=== PATIENT | female | born 1995 ===

== ENCOUNTER 2017-05-20 21:19 | Inpatient (IN) | payer BC, MEDICAID ==
[2017-05-20 21:20] VITALS: BMI 41.5
[2017-05-20] MEDS ORDERED: Sodium Chloride 0.9% 1,000 ML IV STA ×2 (21:30→22:08)
[2017-05-20 22:08] LABS: SALICYLATE < 1 mg/dL (2.0-20.0)
[2017-05-20 22:10] LABS: ALB/GLOB RATIO 1.2 (1.1-1.8); ALBUMIN 4.5 g/dL (3.0-4.8); ALT/SGPT 28 U/L (7-56); AST/SGOT 25 U/L (14-36); BLOOD UREA NITROGEN 15 mg/dL (7-21); CALCIUM 10.2 mg/dL (8.4-10.5); GFR AFRICAN-AMERICAN > 60; GFR NON-AFRICAN AMERICAN > 60
[2017-05-20 22:28] LABS: BASO # 0.01 K/mm3 (0.0-2.0); BASO % 0.2 % (0.0-3.0); EOS % 0.7 % (1.5-5.0); GRAN # 3.73 (1.4-6.5); GRAN % 62.6 % (50.0-68.0); HEMOGLOBIN 12.9 g/dL (12.0-16.0); LYMPH # 1.6 (1.2-3.4); LYMPH % 26.4 % (22.0-35.0); MEAN CELL VOLUME 85.2 fl (80.0-105.0); MEAN CORPUSCULAR HEMOGLOBIN 27.2 pg (25.0-35.0); MEAN CORPUSCULAR HGB CONC 31.9 g/dl (31.0-37.0); MEAN PLATELET VOLUME 10.8 fl (7.0-11.0); MONO # 0.6 (0.1-0.6); MONO % 10.1 % (1.0-6.0); RBC 4.74 10^6/uL (3.5-6.1); RED CELL DISTRIBUTION WIDTH 13.4 % (11.5-14.5)
--- NOTE | 2017-05-20 22:55 | ED PDOC ---
Arrival/HPI - General Chief Complaint: Psychiatric Evaluation Time Seen by Provider: 05/20/17 21:30 Historian: Patient - History of Present Illness Narrative History of Present Illness (Text): 05/20/17 22:55 A 21 year old female was brought in by EMS to the emergency department for substance overdose. Patient was living with mother, jobless, and after getting into an argument with mother, she was kicked out of her house. Patient took a bottle of Aspirin, bottle of Motrin and three sleeping pills. Reports suicidal ideation but denies any other complaints at this time. Symptom Onset: Sudden Symptom Course: Unchanged Activities at Onset: Rest Context: Home Past Medical History - Provider Review Nursing Documentation Reviewed: Yes - Infectious Disease Hx of Infectious Diseases: None - Psychiatric Hx Substance Use: No - Anesthesia Hx Anesthesia: No Family/Social History - Physician Review Nursing Documentation Reviewed: Yes Family/Social History: No Known Family HX Smoking Status: Never Smoked Hx Alcohol Use: No Hx Substance Use: No Allergies/Home Meds Allergies/Adverse Reactions: Allergies No Known Allergies Allergy (Verified 05/21/17 05:02) Home Medications: Home Meds Medication Instructions Recorded Confirmed No Known Home Med 05/21/17 05/21/17 Review of Systems - Physician Review All systems were reviewed & negative as marked: Yes - Review of Systems Constitutional: absent: Fevers Psychiatric: Suicidal Ideation Physical Exam Vital Signs Reviewed: Yes Vital Signs Temp Pulse Resp BP Pulse Ox 05/21/17 01:26 98.4 F 87 18 114/72 100 05/20/17 23:10 89 18 108/48 L 98 05/20/17 21:52 98.4 F 99 H 18 134/84 100 Temperature: Afebrile Blood Pressure: Normal Pulse: Regular Respiratory Rate: Normal Appearance: Positive for: Well-Appearing, Non-Toxic, Comfortable Pain Distress: None Mental Status: Positive for: Alert and Oriented X 3 - Systems Exam Head: Present: Atraumatic, Normocephalic Pupils: Present: PERRL Extroacular Muscles: Present: EOMI Conjunctiva: Present: Normal Mouth: Present: Moist Mucous Membranes Neck: Present: Normal Range of Motion Respiratory/Chest: Present: Clear to Auscultation, Good Air Exchange. No: Respiratory Distress, Accessory Muscle Use Cardiovascular: Present: Regular Rate and Rhythm, Normal S1, S2. No: Murmurs Abdomen: Present: Normal Bowel Sounds. No: Tenderness, Distention, Peritoneal Signs Back: Present: Normal Inspection Upper Extremity: Present: Normal Inspection. No: Cyanosis, Edema Lower Extremity: Present: Normal Inspection. No: Edema Neurological: Present: GCS=15, CN II-XII Intact, Speech Normal Skin: Present: Warm, Dry, Normal Color. No: Rashes Psychiatric: Present: Alert, Oriented x 3, Normal Insight, Normal Concentration Medical Decision Making ED Course and Treatment: 05/20/17 22:54 Impression: A 21 year old female with suicidal ideation and overdose. Plan: -- EKG -- labs -- IV fluids, Actidose/Sorbitol -- Urinalysis -- Reassess and disposition Progress Notes: 05/20/17 23:28 EKG: Ordered, reviewed, and independently interpreted the EKG. Rate : 97 BPM Rhythm : NSR Interpretation : Normal intervals, normal axis Comparison : No previous EKG for comparison. 05/21/17 02:38 Reviewed patient's labs, urine shows UTI. Patient is medically cleared and can be admitted to psych. Patient was evaluated by PES, pending on psychiatrist assessment and disposition. 05/21/17 03:20 Patient will be admitted to psych under Dr. Pena's service. - Lab Interpretations Lab Results: 05/20/17 21:30 05/20/17 21:30 Lab Results 05/21/17 02:30: pCO2 33 L, pO2 126.0 H, HCO3 20.4 L, ABG pH 7.40, ABG Total CO2 21.4 L, ABG O2 Saturation 99.5 H, ABG Base Excess -3.6 L, ABG Potassium 3.5 L, Glucose 114 H, Lactate 1.1, FiO2 21.0, Sodium 142.0, Chloride 114.0 H, Arterial Blood Potassium 3.5 L 05/21/17 01:20: Salicylates 6, Acetaminophen 16.0 05/20/17 23:13: Urine Color Yellow, Urine Appearance Clear, Urine pH 6.5, Ur Specific [place] 1.010, Urine Protein Negative, Urine Glucose (UA) Negative, Urine Ketones Negative, Urine Blood Negative, Urine Nitrate Positive H, Urine Bilirubin Negative, Urine Urobilinogen 0.2, Ur Leukocyte Esterase Negative, Urine RBC 0 - 2, Urine WBC 1 - 3, Ur Epithelial Cells 0 - 2, Urine Bacteria Many 05/20/17 23:13: Urine Opiates Screen Negative, Urine Methadone Screen Negative, Ur Barbiturates Screen Negative, Ur Phencyclidine Scrn Negative, Ur Amphetamines Screen Negative, U Benzodiazepines Scrn Negative, U Oth Cocaine Metabols Negative, U Cannabinoids Screen Negative 05/20/17 21:30: Alcohol, Quantitative < 10 05/20/17 21:30: Salicylates < 1 L, Acetaminophen 12.0 05/20/17 21:30: Sodium 141, Potassium 4.3, Chloride 104, Carbon Dioxide 22, Anion Gap 18, BUN 15, Creatinine 0.5 L, Est GFR ( Amer) > 60, Est GFR ( Non-Af Amer) > 60, Random Glucose 96, Calcium 10.2, Total Bilirubin 0.5, AST 25 , ALT 28, Alkaline Phosphatase 91, Total Protein 8.1, Albumin 4.5, Globulin 3.6 , Albumin/Globulin Ratio 1.2 05/20/17 21:30: WBC 6.0, RBC 4.74, Hgb 12.9, Hct 40.4, MCV 85.2, MCH 27.2, MCHC 31.9, RDW 13.4, Plt Count 249, MPV 10.8, Gran % 62.6, Lymph % (Auto) 26.4, [place] % (Auto) 10.1 H, Eos % (Auto) 0.7 L, Baso % (Auto) 0.2, Gran # 3.73, Lymph # ( Auto) 1.6, [place] # (Auto) 0.6, Eos # (Auto) 0.0, Baso # (Auto) 0.01 I have reviewed the lab results: Yes - EKG Interpretation Interpreted by ED Physician: Yes Type: 12 lead EKG - Medication Orders Current Medication Orders: Acetaminophen (Tylenol 325mg Tab) 650 mg PO Q6H PRN PRN Reason: Pain, Mild (1-3) Al Hydrox/Mg Hydrox/Simethicone (Maalox Plus 30 Ml) 30 ml PO DAILY PRN PRN Reason: Upset Stomach Bupropion HCl (Wellbutrin) 75 mg PO BID GREGORY Last Admin: 05/21/17 16:51 Dose: 75 mg Sodium Chloride (Sodium Chloride 0.9%) 1,000 mls @ 30 mls/hr IV .Q24H STA Stop: 05/21/17 21:29 Last Admin: 05/20/17 23:45 Dose: 30 mls/hr eMAR Start Stop Document 05/20/17 23:45 SS (Rec: 05/21/17 03:31 SS [id number]) Intravenous Solution Start Date 05/21/17 Start Time 23:45 End Date 05/21/17 End time 03:31 Total Infusion Time -1214 Magnesium Hydroxide (Milk Of Magnesia) 30 ml PO DAILY PRN PRN Reason: Constipation Discontinued Medications Cephalexin Monohydrate (Keflex) 500 mg PO TID GREGORY PRN Reason: Protocol Last Admin: 05/21/17 13:57 Dose: 500 mg Charcoal/Sorbitol (Actidose/Sorbitol 50gm/240 Ml Susp) 50 gm PO STAT STA Stop: 05/20/17 22:09 Last Admin: 05/20/17 23:01 Dose: 50 gm Sodium Chloride (Sodium Chloride 0.9%) 1,000 mls @ 999 mls/hr IV .Q1H1M STA Stop: 05/20/17 23:08 Last Admin: 05/20/17 22:28 Dose: 999 mls/hr eMAR Start Stop Document 05/20/17 22:28 SS (Rec: 05/20/17 22:28 SS [id number]) Intravenous Solution Start Date 05/20/17 Start Time 22:28 End Date 05/20/17 End time 23:28 Total Infusion Time 60 Ceftriaxone Sodium (Rocephin 1 Gram Ivpb) 1 gm in 100 mls @ 200 mls/hr IVPB STAT STA PRN Reason: Protocol Stop: 05/21/17 00:27 Last Admin: 05/21/17 01:44 Dose: 200 mls/hr eMAR Start Stop Document 05/21/17 01:44 SS (Rec: 05/21/17 01:44 SS [id number]) Intravenous Solution Start Date 05/21/17 Start Time 01:44 End Date 05/21/17 End time 02:44 Total Infusion Time 60 - PA / [employer] / Resident Statement MD/ has reviewed & agrees with the documentation as recorded. - Scribe Statement The provider has reviewed the documentation as recorded by the Luisibe Dave Gordon Provider Scribe Attestation: All medical record entries made by the Scribe were at my direction and personally dictated by me. I have reviewed the chart and agree that the record accurately reflects my personal performance of the history, physical exam, medical decision making, and the department course for this patient. I have also personally directed, reviewed, and agree with the discharge instructions and disposition. Disposition/Present on Arrival - Present on Arrival Any Indicators Present on Arrival: No History of DVT/PE: No History of Uncontrolled Diabetes: No Urinary Catheter: No History of Decub. Ulcer: No History Surgical Site Infection Following: None - Disposition Have Diagnosis and Disposition been Completed?: Yes Diagnosis: Suicide attempt, Severe major depression, UTI (urinary tract infection) Disposition: HOSPITALIZED Disposition Time: 03:25 Patient Plan: Admission Patient Problems: Current Active Problems Problem Status Onset Severe major depression Acute Suicide attempt Acute UTI (urinary tract infection) Acute Condition: IMPROVED
[2017-05-20 23:39] LABS: PH,URINE 6.5 (4.7-8.0); URINE BILIRUBIN NEGATIVE (NEGATIVE); URINE BLOOD NEGATIVE (NEGATIVE); URINE GLUCOSE (UA) NEGATIVE (NEGATIVE); URINE LEUKOCYTE ESTERASE NEGATIVE Leu/uL (NEGATIVE); URINE NITRATE POSITIVE (NEGATIVE); URINE PROTEIN NEGATIVE mg/dL (<30 mg/dL); URINE UROBILINOGEN 0.2 E.U./dL (<1 E.U./dL)
[2017-05-20 23:44] LABS: URINE APPEARANCE CLEAR (CLEAR); URINE COLOR YELLOW (YELLOW)
[2017-05-20 23:50] LABS: BARBITURATES, UR NEGATIVE (NEGATIVE); BENZODIAZEPINES, UR NEGATIVE (NEGATIVE); OPIATES, UR NEGATIVE (NEGATIVE); PHENCYCLIDINE, UR NEGATIVE (NEGATIVE)
[2017-05-20] MEDS ORDERED: cefTRIAXone 1 gm 1 GM/100 ML BAG IVPB STA (23:58)
[2017-05-21 00:09] LABS: URINE EPITHELIAL CELLS 0 - 2 /hpf (0-5); URINE RBC 0 - 2 /hpf (0-2)
[2017-05-21 00:10] LABS: URINE BACTERIA MANY (NEG)
[2017-05-21 02:39] LABS: ARTERIAL BLOOD GAS HCO3 20.4 mmol/L (21-28); ARTERIAL BLOOD GAS O2 SAT 99.5 % (95-98); ARTERIAL BLOOD GAS PCO2 33 mm/Hg (35-45); ARTERIAL BLOOD GAS TCO2 21.4 mmol.L (22-28)
[2017-05-21] MEDS ORDERED: Magnesium Hydroxide Susp 30 ml UD PO PRN (04:58)
[2017-05-21] MEDS ORDERED: Alum-Mag Hydrox-Simethicone Susp (30 mL) PO PRN (04:58)
--- NOTE | 2017-05-21 05:38 | PCM.BM ---
<JaidenMateus - Last Filed: 05/21/17 05:35> Treatment Plan Problems - Problems identified on initial assessmt Hopelessness/Helplessness Date Initiated: 05/21/17 Time Initiated: 04:00 Assessment reference: NA Status: Active Priority: 1 Feelings of Worthlessness Date Initiated: 05/21/17 Time Initiated: 04:00 Assessment reference: NA Status: Active Priority: 2 Ineffective Coping Date Initiated: 05/21/17 Time Initiated: 04:00 Assessment reference: NA Status: Active Priority: 3 Medication Nonadherence Date Initiated: 05/21/17 Time Initiated: 04:00 Assessment reference: NA Status: Active Priority: 4 Self Care Deficit Date Initiated: 05/21/17 Time Initiated: 04:00 Assessment reference: NA Status: Active Priority: 5 Treatment assets and liabiliti Patient Assests: cooperative, cognitively intact, good interpersonal skills Patient Liabilities: financial problems, relationship conflicts - Milieu Protocol Maintain good personal hygiene: daily Encourage regular showers, every shift Remind patient to perform daily oral care, every shift Assist patient to perform ADL's Maintain personal safety: every shift Educate patient to report safety concerns to staff, every shift Monitor environment for contraband/sharps Medication safety: Monitor for expected outcome, potential side effects: every shift, Assess barriers to learning: every shift, Assess readiness for medication education: every shift Family Contact Family involvement: Family/SO is involved Family contact: Patient agrees to contact - Goals for Treatment Patient goals for treatment: Improve mood, self esteem, and motivation. Discharge/Continuing Care - Education Needs Education Needs: Family Medication, Family Diagnosis/Disease Process, Family Coping Skills, Family Anger Management skills, Family Placement options, Family Community resources, Family Activities of Daily Living, Family Health Practices/ Safety, Family Aftercare Safety Plan, Patient Medication, Patient Diagnosis/ Disease Process, Patient Coping Skills, Patient Anger Management skills, Patient Placement options, Patient Community resources, Patient Activities of Daily Living, Patient Pain, Patient Nutrition, Patient Uses of Medical Equipment , Patient Health Practices/Safety, Patient Personal Hygiene/Grooming, Patient Aftercare Safety Plan - Discharge Discharge Criteria: Tolerates medication w/o severe side effects, Free of Suicidal thoughts, Ability to care for self <Sofia Hall - Last Filed: 05/21/17 12:36> - Diagnosis (1) Severe major depression Status: Acute Interventions: 05/21/17 12:36 Psychoeducation Psychopharmacology/adjustment of medications as needed/ monitoring possible side effects Evaluate pt on daily basis Compliance with medications and follow up appointments Suicide and homicide risk assessment and prevention Relapse prevention Reduction of symptoms Improve functional status Family involvement As outpatient: cognitive behavioral therapy <Yareli Adames - Last Filed: 05/22/17 12:22>
[2017-05-21 05:41] VITALS: O2SAT 97
--- NOTE | 2017-05-21 07:58 | CP.PCM.CON ---
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 Pt states that she had an argument with her mother and was kicked out of the house. She then took a bottle of aspirin (unable to tell # of tablets), Motrin and 3 sleeping pills (nyquil or benadryl). She states that she wanted to hurt herself. Reports feeling down lately. Denies fever, chills, nausea, vomiting, headache, cp, sob, abdominal pain, cough, diarrhea/constipation, dysuria, hematuria, urinary frequency, leg swelling. Pt states that she usually urinated normally, going to the bathroom. However, she also has an bladder ostomy site in her abdomen, where she drains urine at night time. 12 point ROS obtained and negative, except as noted per HPI. PMH: caudal regression syndrome (congenital) PSH: denies All: NKA FH: denies SH: lives with mother, jobless. Denies etoh/tobacco/drug use. Review of Systems - Review of Systems All systems: reviewed and no additional remarkable complaints except Review of Systems: as per hpi Past Patient History - Infectious Disease Hx of Infectious Diseases: None - Past Social History Smoking Status: Never Smoked - CARDIAC Hx Cardiac Disorders: No - PULMONARY Hx Respiratory Disorders: No - NEUROLOGICAL Hx Neurological Disorder: No - HEENT Hx HEENT Problems: No - RENAL Hx Chronic Kidney Disease: No - ENDOCRINE/METABOLIC Hx Endocrine Disorders: No - HEMATOLOGICAL/ONCOLOGICAL Hx Blood Disorders: No - INTEGUMENTARY Hx Dermatological Problems: No - GASTROINTESTINAL Hx Gastrointestinal Disorders: No - GENITOURINARY/GYNECOLOGICAL Hx Genitourinary Disorders: Yes Hx Urinary Tract Infection: Yes - PSYCHIATRIC Hx Depression: Yes - SURGICAL HISTORY Hx Surgeries: Yes - ANESTHESIA Hx Anesthesia: Yes Meds Allergies/Adverse Reactions: Allergies Allergy/AdvReac Type Severity Reaction Status Date / Time No Known Allergies Allergy Verified 05/21/17 05:02 - Medications Medications: Current Medications Acetaminophen (Tylenol 325mg Tab) 650 mg PO Q6H PRN PRN Reason: Pain, Mild (1-3) Al Hydrox/Mg Hydrox/Simethicone (Maalox Plus 30 Ml) 30 ml PO DAILY PRN PRN Reason: Upset Stomach Cephalexin Monohydrate (Keflex) 500 mg PO TID GREGORY PRN Reason: Protocol Sodium Chloride (Sodium Chloride 0.9%) 1,000 mls @ 30 mls/hr IV .Q24H STA Stop: 05/21/17 21:29 Last Admin: 05/20/17 23:45 Dose: 30 mls/hr Magnesium Hydroxide (Milk Of Magnesia) 30 ml PO DAILY PRN PRN Reason: Constipation Physical Exam - Constitutional Appears: Non-toxic, No Acute Distress - Head Exam Head Exam: ATRAUMATIC, NORMOCEPHALIC - Eye Exam Eye Exam: EOMI, PERRL. absent: Conjunctival injection, Scleral icterus Pupil Exam: NORMAL ACCOMODATION, PERRL. absent: Fixed, Irregular - ENT Exam ENT Exam: Mucous Membranes Moist - Neck Exam Neck exam: Positive for: Full Rom - Respiratory Exam Respiratory Exam: Clear to Auscultation Bilateral, NORMAL BREATHING PATTERN. absent: Accessory Muscle Use, Rales, Rhonchi, Wheezes - Cardiovascular Exam Cardiovascular Exam: RRR, +S1, +S2. absent: Bradycardia, Tachycardia, Systolic Murmur - GI/Abdominal Exam GI & Abdominal Exam: Normal Bowel Sounds, Soft. absent: Bruit, Distended, Firm , Guarding, Mass, Rebound, Tenderness Additional comments: + ostomy site on right side abdomen, at the umbilical level. Site pink, nonerythematous, nonfluctuant. - Extremities Exam Extremities exam: Negative for: calf tenderness, pedal edema - Back Exam Back exam: absent: CVA tenderness (L), CVA tenderness (R) - Neurological Exam Neurological exam: Alert, Oriented x3 - Psychiatric Exam Psychiatric exam: Depressed - Skin Skin Exam: Dry, Normal Color, Warm Results - Vital Signs Recent Vital Signs: Last Vital Signs Temp 97.2 F L 05/21/17 03:45 Pulse 92 H 05/21/17 03:45 Resp 16 05/21/17 03:45 BP 124/84 05/21/17 03:45 Pulse Ox 97 05/21/17 03:45 - Labs Result Diagrams: 05/20/17 21:30 05/20/17 21:30 Assessment & Plan - Assessment and Plan (Free Text) Assessment: 21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 Pt hemodynamically stable, cbc, cmp unremarkable, UA positive for nitrate and many bacteria, 1-3 wbcs, 0-2 epithelial cells. However, pt denies any urinary symptoms. UDS negative, low salicylate, tylenol, alcohol levels. She is currently stable and can proceed towards getting appropriate psychiatric care. Thank you for your consult. Discussed with Dr Rome. - Date & Time Date: 05/21/17 Time: 13:41 <Anika Rome - Last Filed: 05/23/17 14:46> Meds - Medications Medications: Current Medications Acetaminophen (Tylenol 325mg Tab) 650 mg PO Q6H PRN PRN Reason: Pain, Mild (1-3) Last Admin: 05/22/17 20:30 Dose: 650 mg Al Hydrox/Mg Hydrox/Simethicone (Maalox Plus 30 Ml) 30 ml PO DAILY PRN PRN Reason: Upset Stomach Ascorbic Acid (Vitamin C 500 Mg Tab) 500 mg PO DAILY [facility] Last Admin: 05/23/17 08:48 Dose: 500 mg Benzocaine/Menthol (Cepacol Sore Throat) 1 adan MT Q2H PRN PRN Reason: Sore Throat Last Admin: 05/23/17 13:57 Dose: 1 adan Bupropion HCl (Wellbutrin) 75 mg PO BID [facility] Last Admin: 05/23/17 08:48 Dose: 75 mg Magnesium Hydroxide (Milk Of Magnesia) 30 ml PO DAILY PRN PRN Reason: Constipation Multivitamins (Thera Tab) 1 tab PO 0800 [facility] Last Admin: 05/23/17 08:48 Dose: 1 tab Results - Vital Signs Recent Vital Signs: Last Vital Signs Temp 97.8 F 05/23/17 06:51 Pulse 85 05/23/17 06:51 Resp 20 05/23/17 06:51 BP 100/51 L 05/23/17 06:51 Pulse Ox 97 05/21/17 03:45 - Labs Result Diagrams: 05/20/17 21:30 05/20/17 21:30 Attending/Attestation - Attestation I have personally seen and examined this patient.: Yes I have fully participated in the care of the patient.: Yes I have reviewed all pertinent clinical information: Yes Notes (Text): 05/23/17 14:46 Patient was seen and examined with medical intern. Agreed with assessment and plan. There is no active medical issue at this time, we will sign off.Please call us back if any question. Management plan was discussed in detail with patient. Education was provided.
[2017-05-21 08:22] LABS: GLUCOSE,FASTING 83 mg/dL (65-110); HDL CHOLESTEROL 60 mg/dL (29-60)
[2017-05-21 08:33] LABS: LDL CHOLESTEROL 74 mg/dL (0-129)
--- NOTE | 2017-05-21 10:30 | RAD ---
HISTORY: Inpatient Psychiatric Admission COMPARISON: No prior. FINDINGS: LUNGS: No active pulmonary disease. PLEURA: No significant pleural effusion identified, no pneumothorax apparent. CARDIOVASCULAR: Normal. OSSEOUS STRUCTURES: No significant abnormalities. VISUALIZED UPPER ABDOMEN: Normal. OTHER FINDINGS: None. IMPRESSION: No active disease.
--- NOTE | 2017-05-21 13:19 | PCM.PSYCH ---
Initial Psychiatric Evaluation - Initial Psychiatric Evaluation Type of Admission: Voluntary Legal Status: Capacity (Patient has capacity to sign consent for treatment) Chief Complaint (in patient's own words): "my mom told me she wants me out, I didn't think seriously about that, but when I woke up at the morning and saw all the boxes, I realize she is serious" Patient's Reaction to Hospitalization: pt was admitted to the psychiatric inpatient unit for evaluation of depressive symptoms, pt is s/p intentional overdose on meds at home. pt was medically cleared in ED, was transferred uneventfully. History of Present Illness and Precipitating Events: Shortly patient is 21 year old female, self reported history of depression, one suicidal attempt in the past in 2015 and one previous psychiatric admission in at the same year, patient lives with her mother, has multiple medical issues including spina bifida, patient is unable to walk, ambulates either with wheelchair or crutches, currently does not work or attending college. pt was brought by ambulance and her cousin s/p intentional overdose on medications (r/o suicidal attempt), pt was not able to contract for safety, needs further evaluation and stabilization. pt was seen and examined at the morning time with medical students and SW, pt presented to be tearful, depressed. Pt has acceptable personal hygiene, pt needs assistance with her ADLs due to her physical problems. pt said that she had an arguments with her mother, pt said that her mother is upset over the fact that pt staying home all day long, does not work or does not go to school. Pt said "she threatened me couple of times that she is going to kick me out, but I didn't take seriously those threats", pt said that her mother let pt know that she needs to move out within two weeks. "I woke up and it were a lot of boxes in my room, I knew she was serious this time", pt said she started to pack her belongings, the was thinking "where I am going, I have nobody, I felt very down and depressed", then pt went to the bathroom and "I took all of the pills in the bathroom, then I went to my room and took all sleeping pills" pt said "It was PM cough medicine", pt said that she was taking all pills with water "to make sure it will go down", pt said nobody was at home and she went back to her room and lay "I wanted to end it all", pt said that her intent was to kill herself. pt said she did not have a plan, but she was feeling very "depressed and down", pt said after that her cousin came back from work and saw all empty bottles and called 911. pt said that she was feeling depressed for the past two weeks, denied having thoughts of killing self prior to this incident. pt had one suicidal attempt at 2014 "I chocked myself and overdosed on pills". pt considered first suicidal attempt to be more serious than current one. pt denied thoughts of harming self at the moment of the interview, contracted for safety. pt said she was feeling depressed, hopeless and helpless, worthless guilty, patient denied hearing voices or seeing things, denied paranoid ideations, patient does not appear to be psychotic. Patient reported no history of abuse, no physical, no emotional, no sexual. Patient denied manic episodes in the past. Patient denied smoking, reported that she smokes marijuana "not that often every other day", patient denied using other drugs, reported drinking alcohol "not that often." Past psychiatric history: See above, pt currently not on meds and has no psychiatrist Medical history: Patient has spina bifida, ambulates with a wheelchair or crutches, patient reported that she torn her ankle ligament sometime in February and since that time she was not able to go to College (pt was going to [employer] "I wanted to be a dentist"). 05/20/17 21:30 05/20/17 21:30 Lab Results 05/21/17 08:00: TSH 3rd Generation 0.35 L 05/21/17 08:00: Fasting Glucose 83, Triglycerides 50, Cholesterol 167, LDL Cholesterol Direct 74, HDL Cholesterol 60 05/21/17 02:30: pCO2 33 L, pO2 126.0 H, HCO3 20.4 L, ABG pH 7.40, ABG Total CO2 21.4 L, ABG O2 Saturation 99.5 H, ABG Base Excess -3.6 L, ABG Potassium 3.5 L, Glucose 114 H, Lactate 1.1, FiO2 21.0, Sodium 142.0, Chloride 114.0 H, Arterial Blood Potassium 3.5 L 05/21/17 01:20: Salicylates 6, Acetaminophen 16.0 05/20/17 23:13: Urine Color Yellow, Urine Appearance Clear, Urine pH 6.5, Ur Specific [place] 1.010, Urine Protein Negative, Urine Glucose (UA) Negative, Urine Ketones Negative, Urine Blood Negative, Urine Nitrate Positive H, Urine Bilirubin Negative, Urine Urobilinogen 0.2, Ur Leukocyte Esterase Negative, Urine RBC 0 - 2, Urine WBC 1 - 3, Ur Epithelial Cells 0 - 2, Urine Bacteria Many 05/20/17 23:13: Urine Opiates Screen Negative, Urine Methadone Screen Negative, Ur Barbiturates Screen Negative, Ur Phencyclidine Scrn Negative, Ur Amphetamines Screen Negative, U Benzodiazepines Scrn Negative, U Oth Cocaine Metabols Negative, U Cannabinoids Screen Negative 05/20/17 21:30: Alcohol, Quantitative < 10 05/20/17 21:30: Salicylates < 1 L, Acetaminophen 12.0 05/20/17 21:30: Sodium 141, Potassium 4.3, Chloride 104, Carbon Dioxide 22, Anion Gap 18, BUN 15, Creatinine 0.5 L, Est GFR ( Amer) > 60, Est GFR ( Non-Af Amer) > 60, Random Glucose 96, Calcium 10.2, Total Bilirubin 0.5, AST 25 , ALT 28, Alkaline Phosphatase 91, Total Protein 8.1, Albumin 4.5, Globulin 3.6 , Albumin/Globulin Ratio 1.2 05/20/17 21:30: WBC 6.0, RBC 4.74, Hgb 12.9, Hct 40.4, MCV 85.2, MCH 27.2, MCHC 31.9, RDW 13.4, Plt Count 249, MPV 10.8, Gran % 62.6, Lymph % (Auto) 26.4, [place] % (Auto) 10.1 H, Eos % (Auto) 0.7 L, Baso % (Auto) 0.2, Gran # 3.73, Lymph # ( Auto) 1.6, [place] # (Auto) 0.6, Eos # (Auto) 0.0, Baso # (Auto) 0.01 Vital Signs Temp Pulse Resp BP Pulse Ox 05/21/17 03:45 97.2 F L 92 H 16 124/84 97 05/21/17 01:26 98.4 F 87 18 114/72 100 02/07/18 23:10 89 18 108/48 L 98 05/20/17 21:52 98.4 F 99 H 18 134/84 100 this instructional writer asked if pt wants her mother to be involved into her treatment, pt refused. Current Medications: Active Medications Generic Name Dose Route Start Last Admin Trade Name Freq PRN Reason Stop Dose Admin Acetaminophen 650 mg 05/21/17 04:58 Tylenol 325mg Tab PO Q6H PRN Pain, Mild (1-3) Al Hydrox/Mg Hydrox/Simethicone 30 ml 05/21/17 04:58 Maalox Plus 30 Ml PO DAILY PRN Upset Stomach Cephalexin Monohydrate 500 mg 05/21/17 08:00 05/21/17 08:53 Keflex PO 500 mg TID GREGORY Administration Protocol Sodium Chloride 1,000 mls @ 30 mls/hr 05/20/17 21:30 05/20/17 23:45 Sodium Chloride 0.9% IV 05/21/17 21:29 30 mls/hr .Q24H STA Administration Magnesium Hydroxide 30 ml 05/21/17 04:58 Milk Of Magnesia PO DAILY PRN Constipation Past Psychiatric History - Past Psychiatric History Previous Treatment History: Inpatient Prior Professional Help: see HPI Prior Psychiatric Treatment: see HPI At what hospital: see HPI Duration: see HPI Nature of Treatment: see HPI Explanation of prior treatment: see HPI History of Abuse: see HPI History of ETOH/Drug Use: see HPI History of Family Illness: denied Pertinent Medical Hx (Current Medical&Sleep Prob, Allergies): Allergies Allergy/AdvReac Type Severity Reaction Status Date / Time No Known Allergies Allergy Verified 05/21/17 05:02 No Known Home Med 05/21/17 Review of Systems - Review of Systems Systems not reviewed;Unavailable: Acuity of Condition - EENT Eyes: As Per HPI Ears: As Per HPI - Breasts Breasts: As Per HPI - Cardiovascular Cardiovascular: As Per HPI - Respiratory Respiratory: As Per HPI - Gastrointestinal Gastrointestinal: As Per HPI - Genitourinary Genitourinary: As Per HPI - Reproductive: Female Reproductive:Female: As Per HPI - Menstruation Menstruation: As Per HPI - Musculoskeletal Musculoskeletal: As Par HPI - Integumentary Integumentary: As Per HPI - Neurological Neurological: As Per HPI - Psychiatric Psychiatric: As Per HPI - Endocrine Endocrine: As Per HPI - Hematologic/Lymphatic Hematologic: As Per HPI Mental Status Examination - Personal Presentation Personal Presentation: Looks stated age - Affect Affect: Flat (and tearful, mood congruent) - Motor Activity Motor Activity: Calm - Reliability in Providing Information Reliability in Providing Information: Fair - Speech Speech: Organized - Mood Mood: Depressed ("I feel depressed") - Formal Thought Process Formal Thought Process: No Impairment - Obsessions/Compulsions Obsessions: None Compulsions: None - Cognitive Functions Orientation: Person Sensorium: Alert Attention/Concentration: Easily distracted Estimate of Intelligence: Average Judgement: Intact, as evidence by: Insight regarding need for hospitalization - Risk Risk: Self-mutilation, Diminished functioning - Strength & Assets Inventory Strength & Assets Inventory: Cooperative - Limitations Limitations: Other (major medical issues, conflict with motehr) DSM 5 DX - DSM 5 DSM 5 Diagnosis: MDD, severe, recurrent with no psychosis - Recommended/Plan of Treatment Treatment Recommendations and Plan of Treatment: Milieu/structure/supportive therapy Medical consult appreciated, see medical team note for more detailed info SW consultation for discharge plan and social issues Med management wellbutrin 75mg po bid for depression Family involvement, pt does not want her mother to be involved Follow up on labs Will monitor closely Pt was educated about risk/benefits and alternatives of medications, coping strategies (safety plan, suicide prevention), relapse prevention, importance of follow up with psychiatrist and therapist, stay away from drugs/alcohol/smoking Projected ELOS: 7days Prognosis: fair Discharge Plan and Discharge Criteria: Pt will be not depressed or manic, will be more hopeful, will be not psychotic or anxious, will be not having thoughts of harming self or others, will be tolerating medications well, will not have major side effects, will be able to function, will not pose threat to self or others. - Smoking Cessation Smoking Cessation Initiated: No
--- NOTE | 2017-05-21 18:12 | CARD ---
APPROVED REPORT EKG Measurement Heart [id number] <Conclusion> Normal sinus rhythm Normal ECG
--- NOTE | 2017-05-22 16:07 | CP.PCM.PCO ---
Physician Communication Note - Physician Communication Note Physician Communication Note: as per PT, pt could walk using her crutches twice a day under supervision
--- NOTE | 2017-05-22 16:07 | PCM.PYCHPN ---
Psychiatric Progress Note - Psychiatric Progress Note Patient seen today, length of contact: 30min Patient Chief Complaint: "my mom came yesterday, visit was not good, she told me I was attention seeking..., I don't want her to be involved...." Problems Identified/Issues Discussed: Suicide/ homicide prevention, past psychiatric h/o, current psychiatric symptoms , medical problems, risk/benefits and alternatives of medications, medications compliance, coping strategies, substance abuse h/o, relapse prevention, importance of follow up with psychiatrist and therapist, discharge plan. Medical Problems: spina bifida Diagnostic Results: 05/20/17 21:30 05/20/17 21:30 Lab Results 05/21/17 08:00: RPR Nonreactive 05/21/17 08:00: TSH 3rd Generation 0.35 L 05/21/17 08:00: Fasting Glucose 83, Triglycerides 50, Cholesterol 167, LDL Cholesterol Direct 74, HDL Cholesterol 60 05/21/17 02:30: pCO2 33 L, pO2 126.0 H, HCO3 20.4 L, ABG pH 7.40, ABG Total CO2 21.4 L, ABG O2 Saturation 99.5 H, ABG Base Excess -3.6 L, ABG Potassium 3.5 L, Glucose 114 H, Lactate 1.1, FiO2 21.0, Sodium 142.0, Chloride 114.0 H, Arterial Blood Potassium 3.5 L 05/21/17 01:20: Salicylates 6, Acetaminophen 16.0 05/20/17 23:13: Urine Color Yellow, Urine Appearance Clear, Urine pH 6.5, Ur Specific [place] 1.010, Urine Protein Negative, Urine Glucose (UA) Negative, Urine Ketones Negative, Urine Blood Negative, Urine Nitrate Positive H, Urine Bilirubin Negative, Urine Urobilinogen 0.2, Ur Leukocyte Esterase Negative, Urine RBC 0 - 2, Urine WBC 1 - 3, Ur Epithelial Cells 0 - 2, Urine Bacteria Many 05/20/17 23:13: Urine Opiates Screen Negative, Urine Methadone Screen Negative, Ur Barbiturates Screen Negative, Ur Phencyclidine Scrn Negative, Ur Amphetamines Screen Negative, U Benzodiazepines Scrn Negative, U Oth Cocaine Metabols Negative, U Cannabinoids Screen Negative 05/20/17 21:30: Alcohol, Quantitative < 10 05/20/17 21:30: Salicylates < 1 L, Acetaminophen 12.0 05/20/17 21:30: Sodium 141, Potassium 4.3, Chloride 104, Carbon Dioxide 22, Anion Gap 18, BUN 15, Creatinine 0.5 L, Est GFR ( Amer) > 60, Est GFR ( Non-Af Amer) > 60, Random Glucose 96, Calcium 10.2, Total Bilirubin 0.5, AST 25 , ALT 28, Alkaline Phosphatase 91, Total Protein 8.1, Albumin 4.5, Globulin 3.6 , Albumin/Globulin Ratio 1.2 05/20/17 21:30: WBC 6.0, RBC 4.74, Hgb 12.9, Hct 40.4, MCV 85.2, MCH 27.2, MCHC 31.9, RDW 13.4, Plt Count 249, MPV 10.8, Gran % 62.6, Lymph % (Auto) 26.4, [place] % (Auto) 10.1 H, Eos % (Auto) 0.7 L, Baso % (Auto) 0.2, Gran # 3.73, Lymph # ( Auto) 1.6, [place] # (Auto) 0.6, Eos # (Auto) 0.0, Baso # (Auto) 0.01 Vital Signs Temp Pulse Resp BP Pulse Ox 05/22/17 07:43 98.2 F 81 20 96/51 L 05/21/17 16:00 99 H 116/62 05/21/17 03:45 97.2 F L 92 H 16 124/84 97 05/21/17 01:26 98.4 F 87 18 114/72 100 05/20/17 23:10 89 18 108/48 L 98 05/20/17 21:52 98.4 F 99 H 18 134/84 100 DSM 5 Symptoms Update: Shortly patient is 21 year old female, self reported history of depression, one suicidal attempt in the past in 2015 and one previous psychiatric admission in [facility] at the same year, patient lives with her mother, has multiple medical issues including spina bifida, patient is unable to walk, ambulates either with wheelchair or crutches, currently does not work or attending college. pt was brought by ambulance and her cousin s/p intentional overdose on medications (r/o suicidal attempt), pt was not able to contract for safety, needs further evaluation and stabilization. pt was seen and examined at the morning time in her room. pt took a shower, c/o sore throat. pt said that her mother came and visit her last night, "it was not a good visit , she said that I had attention seeking act, she also said anytime when she wants me out I will act the same, ....I don't want her to be involved". pt was advised to think about a family meeting, pt declined that offer pt reported that she still feels depressed and hopeless. seems to be remorseful for her act. pt tolerates meds well, no side effects observed or reported, AIMS 0, no EPS. Impression: MDD Medication Change: Yes (wellbutrin started) Medical Record Reviewed: Yes Consults ordered or reviewed: medical and PT consult appreciated as PT eval pt could use her crutches under supervision twice a day. Mental Status Examination - Cognitive Function Orientation: Person Memory: Intact Attention: Poor Concentration: Poor Association: WNL Fund of Knowledge: WNL - Mood Mood: Depressed ("I feel depressed") - Affect Affect: Flat (and tearful, mood congruent) - Formal Thought Process Formal Thought Process: No Impairment - Suicidal Ideation Suicidal Ideation: No - Homicidal Ideation Homicidal Ideation: No Goal/Treatment Plan - Goal/Treatment Plan Need for Continued Stay: Remain at risks for inpatient hospitalization, Severe depression anxiety, Discharge may exacerbated symptoms, Severe functional impairment Progress Toward Problem(s) and Goals/Treatment Plan: Milieu/structure/supportive therapy Medical consult appreciated, see medical team note for more detailed info SW consultation for discharge plan and social issues Med management wellbutrin 75mg po bid for depression sonata as needed for insomnia as per PT, pt could walk using her crutches twice a day under supervision of staff. Family involvement, pt does not want her mother to be involved Follow up on labs Will monitor closely Pt was educated about risk/benefits and alternatives of medications, coping strategies (safety plan, suicide prevention), relapse prevention, importance of follow up with psychiatrist and therapist, stay away from drugs/alcohol/smoking Estimated Date of D/C: 05/27/17
[2017-05-22] MEDS: Benzocaine/Menthol (Cepacol) Lozenge MT PRN (20:30)
[2017-05-23] MEDS: Multivitamin Therapeutic Tab PO SCH (08:48)
--- NOTE | 2017-05-23 09:27 | PCM.PYCHPN ---
Psychiatric Progress Note - Psychiatric Progress Note Patient seen today, length of contact: 25 min Patient Chief Complaint: "feels okay". Problems Identified/Issues Discussed: I reviewed assessment and recent notes. Patient was interviewed at bedside. Patient is well-oriented to month, year, location and circumstances. Grooming and focus are acceptable. Patient reports that she "feels okay". Affect is constricted and a little disengaged but polite. She denies any side effects from her medications however reports that she did not sleep well last night even with Sonata 5 mg x1. Thought process is coherent and responses are relevant. She continues to have chronic back pain and denies any new discomfort or pain. Staff notes indicate that she has been in control on the unit. She has been attending and participating in groups. Appears to appreciate and enjoy the company of other patients. There were no behavioral issues overnight. Diagnostic Results: Major Depressive Disorder, Severe Medication Change: Yes (Sonata increased to 10 mg HS prn) Medical Record Reviewed: Yes Mental Status Examination - Cognitive Function Orientation: Person Memory: Intact Attention: Poor Concentration: Poor Association: WNL Fund of Knowledge: WNL - Mood Mood: Depressed ( "feels okay".) - Affect Affect: Constricted, Flat (and tearful, mood congruent) - Speech Speech: Appropriate - Formal Thought Process Formal Thought Process: No Impairment - Suicidal Ideation Suicidal Ideation: No - Homicidal Ideation Homicidal Ideation: No Goal/Treatment Plan - Goal/Treatment Plan Need for Continued Stay: Remain at risks for inpatient hospitalization, Severe depression anxiety, Discharge may exacerbated symptoms, Severe functional impairment Progress Toward Problem(s) and Goals/Treatment Plan: c/w current tx and plan Sonata increased to 10 mg HS prn: insomnia on 05/23/17 No new weekend labs thus far Vitals reviewed and noted below: Selected Entries 05/23/17 06:51 Temperature 97.8 F Pulse Rate 85 Respiratory 20 Rate Blood Pressure 100/51 L Estimated Date of D/C: 05/27/17
[2017-05-23] MEDS: Benzocaine/Menthol (Cepacol) Lozenge MT PRN (13:57)
[2017-05-24] MEDS: Multivitamin Therapeutic Tab PO SCH (08:55)
--- NOTE | 2017-05-24 17:17 | PCM.PYCHPN ---
Psychiatric Progress Note - Psychiatric Progress Note Patient seen today, length of contact: 25 min Patient Chief Complaint: "feels the same". Problems Identified/Issues Discussed: I reviewed recent notes and patient was interviewed at bedside. Patient is well- oriented to month, year, location and circumstances. Grooming is acceptable. Patient reports that she feels the same, her affect remains constricted and a little flat. Patient denies any side effects except for headache this morning. She slept better on the increased dose of sonata 10 mg last night. Thought process is coherent and responses are relevant. She continues to have chronic back pain and denies any other new discomfort or pain. Staff notes indicate that she has been in control on the unit. She has been attending and participating in groups. Appears to appreciate and enjoy the company of other patients but still appears depressed. There were no behavioral issues over the weekend. Diagnostic Results: Major Depressive Disorder, Severe Medication Change: Yes (Sonata increased to 10 mg HS prn) Medical Record Reviewed: Yes Mental Status Examination - Cognitive Function Orientation: Person Memory: Intact Attention: Poor Concentration: Poor Association: WNL Fund of Knowledge: WNL - Mood Mood: Depressed ( "feels okay".) - Affect Affect: Constricted, Flat (and tearful, mood congruent) - Speech Speech: Appropriate - Formal Thought Process Formal Thought Process: No Impairment - Suicidal Ideation Suicidal Ideation: No - Homicidal Ideation Homicidal Ideation: No Goal/Treatment Plan - Goal/Treatment Plan Need for Continued Stay: Remain at risks for inpatient hospitalization, Severe depression anxiety, Discharge may exacerbated symptoms, Severe functional impairment Progress Toward Problem(s) and Goals/Treatment Plan: c/w current tx and plan Sonata increased to 10 mg HS prn: insomnia on 05/23/17 No new weekend labs Vitals reviewed and noted below: Selected Entries 05/24/17 07:27 Temperature 97.8 F Pulse Rate 83 Respiratory 20 Rate Blood Pressure 99/56 L Estimated Date of D/C: 05/27/17
[2017-05-25] MEDS: Multivitamin Therapeutic Tab PO SCH (09:17)
--- NOTE | 2017-05-25 15:24 | PCM.PYCHPN ---
Psychiatric Progress Note - Psychiatric Progress Note Patient seen today, length of contact: 25 min Patient Chief Complaint: "I feel little better" Problems Identified/Issues Discussed: Suicide/ homicide prevention, past psychiatric h/o, current psychiatric symptoms , medical problems, risk/benefits and alternatives of medications, medications compliance, coping strategies, substance abuse h/o, relapse prevention, importance of follow up with psychiatrist and therapist, discharge plan. Medical Problems: spina bifida Diagnostic Results: 05/20/17 21:30 05/20/17 21:30 Lab Results 05/21/17 08:00: RPR Nonreactive 05/21/17 08:00: TSH 3rd Generation 0.35 L 05/21/17 08:00: Fasting Glucose 83, Triglycerides 50, Cholesterol 167, LDL Cholesterol Direct 74, HDL Cholesterol 60 05/21/17 02:30: pCO2 33 L, pO2 126.0 H, HCO3 20.4 L, ABG pH 7.40, ABG Total CO2 21.4 L, ABG O2 Saturation 99.5 H, ABG Base Excess -3.6 L, ABG Potassium 3.5 L, Glucose 114 H, Lactate 1.1, FiO2 21.0, Sodium 142.0, Chloride 114.0 H, Arterial Blood Potassium 3.5 L 05/21/17 01:20: Salicylates 6, Acetaminophen 16.0 05/20/17 23:13: Urine Color Yellow, Urine Appearance Clear, Urine pH 6.5, Ur Specific [place] 1.010, Urine Protein Negative, Urine Glucose (UA) Negative, Urine Ketones Negative, Urine Blood Negative, Urine Nitrate Positive H, Urine Bilirubin Negative, Urine Urobilinogen 0.2, Ur Leukocyte Esterase Negative, Urine RBC 0 - 2, Urine WBC 1 - 3, Ur Epithelial Cells 0 - 2, Urine Bacteria Many 05/20/17 23:13: Urine Opiates Screen Negative, Urine Methadone Screen Negative, Ur Barbiturates Screen Negative, Ur Phencyclidine Scrn Negative, Ur Amphetamines Screen Negative, U Benzodiazepines Scrn Negative, U Oth Cocaine Metabols Negative, U Cannabinoids Screen Negative 05/20/17 21:30: Alcohol, Quantitative < 10 05/20/17 21:30: Salicylates < 1 L, Acetaminophen 12.0 05/20/17 21:30: Sodium 141, Potassium 4.3, Chloride 104, Carbon Dioxide 22, Anion Gap 18, BUN 15, Creatinine 0.5 L, Est GFR ( Amer) > 60, Est GFR ( Non-Af Amer) > 60, Random Glucose 96, Calcium 10.2, Total Bilirubin 0.5, AST 25 , ALT 28, Alkaline Phosphatase 91, Total Protein 8.1, Albumin 4.5, Globulin 3.6 , Albumin/Globulin Ratio 1.2 05/20/17 21:30: WBC 6.0, RBC 4.74, Hgb 12.9, Hct 40.4, MCV 85.2, MCH 27.2, MCHC 31.9, RDW 13.4, Plt Count 249, MPV 10.8, Gran % 62.6, Lymph % (Auto) 26.4, [place] % (Auto) 10.1 H, Eos % (Auto) 0.7 L, Baso % (Auto) 0.2, Gran # 3.73, Lymph # ( Auto) 1.6, [place] # (Auto) 0.6, Eos # (Auto) 0.0, Baso # (Auto) 0.01 Vital Signs Temp Pulse Resp BP Pulse Ox 05/22/17 07:43 98.2 F 81 20 96/51 L 05/21/17 16:00 99 H 116/62 05/21/17 03:45 97.2 F L 92 H 16 124/84 97 05/21/17 01:26 98.4 F 87 18 114/72 100 05/20/17 23:10 89 18 108/48 L 98 05/20/17 21:52 98.4 F 99 H 18 134/84 100 Temp Pulse Resp BP Pulse Ox 98.1 F 90 20 114/66 97 05/25/17 07:30 05/25/17 07:30 05/25/17 07:30 05/25/17 07:30 05/21/17 03:45 DSM 5 Symptoms Update: Shortly patient is 21 year old female, self reported history of depression, one suicidal attempt in the past in 2014 and one previous psychiatric admission in [facility] at the same year, patient lives with her mother, has multiple medical issues including spina bifida, patient is unable to walk, ambulates either with wheelchair or crutches, currently does not work or attending college. pt was brought by ambulance and her cousin s/p intentional overdose on medications (r/o suicidal attempt), pt was not able to contract for safety, needs further evaluation and stabilization. pt was seen and examined next to the nursing station. pt presented with some improvement, pt's affect was more reactive, pt also was pleasant. pt said that her cold symptoms are much better, pt said that she has a headaches, thought that it is due to wellbutrin, pt asked to change her meds, this leader writer offered celexa, risk/benefits and alternatives discussed. pt said that her mother visited her over the weekend and "It was good visit, I guess", when was asked in what way, pt said "we talked at least" pt gave permission to have meeting with her mother, but said she does not want to participate in that meeting. pt said that she has some future oriented plans "I want to go back to college, this is what my mother wants", pt was advised to think what does she want and make decision what is right for her, again encouraged to participate in family meeting. pt tolerates meds well, no side effects observed or reported, AIMS 0, no EPS. Impression: MDD Medication Change: Yes (wellubtrin d/c, celexa started) Medical Record Reviewed: Yes Consults ordered or reviewed: medical and PT consult appreciated as PT eval pt could use her crutches under supervision twice a day. Mental Status Examination - Cognitive Function Orientation: Person Memory: Intact Attention: Poor (some improvement) Concentration: Poor (some improvement) Association: WNL Fund of Knowledge: WNL - Mood Mood: Depressed ( "feels okay".) - Affect Affect: Constricted, Flat (and tearful, mood congruent) - Speech Speech: Appropriate - Formal Thought Process Formal Thought Process: No Impairment - Suicidal Ideation Suicidal Ideation: No - Homicidal Ideation Homicidal Ideation: No Goal/Treatment Plan - Goal/Treatment Plan Need for Continued Stay: Remain at risks for inpatient hospitalization, Severe depression anxiety, Discharge may exacerbated symptoms, Severe functional impairment Progress Toward Problem(s) and Goals/Treatment Plan: Milieu/structure/supportive therapy Medical consult appreciated, see medical team note for more detailed info SW consultation for discharge plan and social issues Med management wellbutrin d/c due to headaches celexa 10mg po daily started for depression sonata as needed for insomnia as per PT, pt could walk using her crutches twice a day under supervision of staff. Family involvement, pt does not want her mother to be involved Follow up on labs Will monitor closely Pt was educated about risk/benefits and alternatives of medications, coping strategies (safety plan, suicide prevention), relapse prevention, importance of follow up with psychiatrist and therapist, stay away from drugs/alcohol/smoking Estimated Date of D/C: 05/27/17
[2017-05-26] MEDS: Multivitamin Therapeutic Tab PO SCH (09:24)
--- NOTE | 2017-05-26 14:28 | CP.PCM.PN ---
<Macy Patel - Last Filed: 05/26/17 14:25> Subjective - Date & Time of Evaluation Date of Evaluation: 05/26/17 Time of Evaluation: 14:25 - Subjective Subjective: Macy Patel, PGY1, Medicine Progress Note for Dr De Santiago: Pt seen and examined at bedside. Reports 2 episodes of nonbloody, nonbilious vomiting since this AM, after food. Reports heartburn and constipation for past few days (since she is in wheelchair now, was previously using crutches at home) . Pt had 1-2 small bowel movements yesterday after many days. She regularly has a bowel movement every day. Currently, she states that she feels good, is hungry and would like to eat. Denies abdominal pain, fever, chills, urinary symptoms, diarrhea. Denies any sick contacts/roommate. Objective - Vital Signs/Intake and Output Vital Signs (last 24 hours): Temp Pulse Resp BP Pulse Ox 98.2 F 82 20 82/50 L 97 05/26/17 07:11 05/26/17 07:11 05/26/17 07:11 05/26/17 07:11 05/21/17 03:45 - Medications Medications: Current Medications Acetaminophen (Tylenol 325mg Tab) 650 mg PO Q6H PRN PRN Reason: Pain, Mild (1-3) Last Admin: 05/25/17 12:15 Dose: 650 mg Al Hydrox/Mg Hydrox/Simethicone (Maalox Plus 30 Ml) 30 ml PO DAILY PRN PRN Reason: Upset Stomach Ascorbic Acid (Vitamin C 500 Mg Tab) 500 mg PO DAILY [facility] Last Admin: 05/26/17 09:24 Dose: 500 mg Benzocaine/Menthol (Cepacol Sore Throat) 1 adan MT Q2H PRN PRN Reason: Sore Throat Last Admin: 05/23/17 13:57 Dose: 1 adan Citalopram Hydrobromide (Celexa) 10 mg PO DAILY [facility] Last Admin: 05/26/17 09:23 Dose: 10 mg Magnesium Hydroxide (Milk Of Magnesia) 30 ml PO DAILY PRN PRN Reason: Constipation Multivitamins (Thera Tab) 1 tab PO 0800 [facility] Last Admin: 05/26/17 09:24 Dose: 1 tab Ondansetron HCl (Zofran Tab) 4 mg PO Q8H PRN PRN Reason: Nausea/Vomiting Last Admin: 05/26/17 13:26 Dose: 4 mg Zaleplon (Sonata) 5 mg PO HS PRN PRN Reason: Insomnia Last Admin: 05/25/17 00:41 Dose: 5 mg - Constitutional Appears: Non-toxic, No Acute Distress - Head Exam Head Exam: ATRAUMATIC, NORMOCEPHALIC - Eye Exam Eye Exam: EOMI, PERRL. absent: Conjunctival injection, Periorbital swelling, Periorbital tenderness, Scleral icterus Pupil Exam: NORMAL ACCOMODATION, PERRL. absent: Fixed, Irregular, Unequal - ENT Exam ENT Exam: Mucous Membranes Moist - Neck Exam Neck Exam: Full ROM - Respiratory Exam Respiratory Exam: Clear to Ausculation Bilateral, NORMAL BREATHING PATTERN - Cardiovascular Exam Cardiovascular Exam: RRR, +S1, +S2. absent: Murmur - GI/Abdominal Exam GI & Abdominal Exam: Soft, Normal Bowel Sounds. absent: Distended, Guarding, Tenderness, Mass, Organomegaly, Rebound - Extremities Exam Extremities Exam: Normal Inspection. 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 Pt receiving care under the psych christie , improving symptoms. Today, pt developed two episodes of nonbloody, nonbilious emesis: Vomitin/2 constipation (wheelchair-bound) vs GERD/gastritis vs viral gastroenteritis - CBC, CMP - Started on protonix bid, zofran - colace prn - Regular diet. Switch to liquid diet if further episodes. - Cont to monitor. SI/depression: - Management as per psych - Pt started on new medication yesterday, Zaleplon, which has a side effect of nausea. Consider switching med if persistent vomiting/nausea. Discussed with Dr De Santiago. <Artur De Santiago - Last Filed: 05/26/17 14:54> Objective - Vital Signs/Intake and Output Vital Signs (last 24 hours): Temp Pulse Resp BP Pulse Ox 98.2 F 82 20 82/50 L 97 05/26/17 07:11 05/26/17 07:11 05/26/17 07:11 05/26/17 07:11 05/21/17 03:45 - Medications Medications: Current Medications Acetaminophen (Tylenol 325mg Tab) 650 mg PO Q6H PRN PRN Reason: Pain, Mild (1-3) Last Admin: 05/25/17 12:15 Dose: 650 mg Al Hydrox/Mg Hydrox/Simethicone (Maalox Plus 30 Ml) 30 ml PO DAILY PRN PRN Reason: Upset Stomach Ascorbic Acid (Vitamin C 500 Mg Tab) 500 mg PO DAILY [facility] Last Admin: 05/26/17 09:24 Dose: 500 mg Benzocaine/Menthol (Cepacol Sore Throat) 1 adan MT Q2H PRN PRN Reason: Sore Throat Last Admin: 05/23/17 13:57 Dose: 1 adan Citalopram Hydrobromide (Celexa) 10 mg PO DAILY [facility] Last Admin: 05/26/17 09:23 Dose: 10 mg Docusate Sodium (Colace) 100 mg PO BID PRN PRN Reason: Constipation Magnesium Hydroxide (Milk Of Magnesia) 30 ml PO DAILY PRN PRN Reason: Constipation Multivitamins (Thera Tab) 1 tab PO 0800 [facility] Last Admin: 05/26/17 09:24 Dose: 1 tab Ondansetron HCl (Zofran Tab) 4 mg PO Q8H PRN PRN Reason: Nausea/Vomiting Last Admin: 05/26/17 13:26 Dose: 4 mg Pantoprazole Sodium (Protonix Ec Tab) 20 mg PO 0600,1600 [facility] Zaleplon (Sonata) 5 mg PO HS PRN PRN Reason: Insomnia Last Admin: 05/25/17 00:41 Dose: 5 mg Attending/Attestation - Attestation I have personally seen and examined this patient.: Yes I have fully participated in the care of the patient.: Yes I have reviewed all pertinent clinical information, including history, physical exam and plan: Yes Notes (Text): 05/26/17 14:50 21 year old female who is currently admitted under psychiatric unit. Medical follow up was requestd after 2 episodes of vomiting today. Episodes were self-limited. Abdominal exam is unremarkable. Agree with PPI with trial of zofran prn. Continue with diet as tolerated. Can add colace prn for constipation. Repeat labs are ordered. Artur De Santiago MD Hospitalist.
--- NOTE | 2017-05-26 16:01 | PCM.PYCHPN ---
Psychiatric Progress Note - Psychiatric Progress Note Patient seen today, length of contact: 30min Patient Chief Complaint: "I vomited twice, I just ate and felt nauseated..." Problems Identified/Issues Discussed: Suicide/ homicide prevention, past psychiatric h/o, current psychiatric symptoms , medical problems, risk/benefits and alternatives of medications, medications compliance, coping strategies, substance abuse h/o, relapse prevention, importance of follow up with psychiatrist and therapist, discharge plan. Medical Problems: spina bifida Diagnostic Results: 05/20/17 21:30 05/20/17 21:30 Lab Results 05/21/17 08:00: RPR Nonreactive 05/21/17 08:00: TSH 3rd Generation 0.35 L 05/21/17 08:00: Fasting Glucose 83, Triglycerides 50, Cholesterol 167, LDL Cholesterol Direct 74, HDL Cholesterol 60 05/21/17 02:30: pCO2 33 L, pO2 126.0 H, HCO3 20.4 L, ABG pH 7.40, ABG Total CO2 21.4 L, ABG O2 Saturation 99.5 H, ABG Base Excess -3.6 L, ABG Potassium 3.5 L, Glucose 114 H, Lactate 1.1, FiO2 21.0, Sodium 142.0, Chloride 114.0 H, Arterial Blood Potassium 3.5 L 05/21/17 01:20: Salicylates 6, Acetaminophen 16.0 05/20/17 23:13: Urine Color Yellow, Urine Appearance Clear, Urine pH 6.5, Ur Specific [place] 1.010, Urine Protein Negative, Urine Glucose (UA) Negative, Urine Ketones Negative, Urine Blood Negative, Urine Nitrate Positive H, Urine Bilirubin Negative, Urine Urobilinogen 0.2, Ur Leukocyte Esterase Negative, Urine RBC 0 - 2, Urine WBC 1 - 3, Ur Epithelial Cells 0 - 2, Urine Bacteria Many 05/20/17 23:13: Urine Opiates Screen Negative, Urine Methadone Screen Negative, Ur Barbiturates Screen Negative, Ur Phencyclidine Scrn Negative, Ur Amphetamines Screen Negative, U Benzodiazepines Scrn Negative, U Oth Cocaine Metabols Negative, U Cannabinoids Screen Negative 05/20/17 21:30: Alcohol, Quantitative < 10 05/20/17 21:30: Salicylates < 1 L, Acetaminophen 12.0 05/20/17 21:30: Sodium 141, Potassium 4.3, Chloride 104, Carbon Dioxide 22, Anion Gap 18, BUN 15, Creatinine 0.5 L, Est GFR ( Amer) > 60, Est GFR ( Non-Af Amer) > 60, Random Glucose 96, Calcium 10.2, Total Bilirubin 0.5, AST 25 , ALT 28, Alkaline Phosphatase 91, Total Protein 8.1, Albumin 4.5, Globulin 3.6 , Albumin/Globulin Ratio 1.2 05/20/17 21:30: WBC 6.0, RBC 4.74, Hgb 12.9, Hct 40.4, MCV 85.2, MCH 27.2, MCHC 31.9, RDW 13.4, Plt Count 249, MPV 10.8, Gran % 62.6, Lymph % (Auto) 26.4, [place] % (Auto) 10.1 H, Eos % (Auto) 0.7 L, Baso % (Auto) 0.2, Gran # 3.73, Lymph # ( Auto) 1.6, [place] # (Auto) 0.6, Eos # (Auto) 0.0, Baso # (Auto) 0.01 Vital Signs Temp Pulse Resp BP Pulse Ox 05/22/17 07:43 98.2 F 81 20 96/51 L 05/21/17 16:00 99 H 116/62 05/21/17 03:45 97.2 F L 92 H 16 124/84 97 05/21/17 01:26 98.4 F 87 18 114/72 100 05/20/17 23:10 89 18 108/48 L 98 05/20/17 21:52 98.4 F 99 H 18 134/84 100 Temp Pulse Resp BP Pulse Ox 98.1 F 90 20 114/66 97 05/25/17 07:30 05/25/17 07:30 05/25/17 07:30 05/25/17 07:30 05/21/17 03:45 Temp Pulse Resp BP Pulse Ox 98.2 F 82 20 82/50 L 97 05/26/17 07:11 05/26/17 07:11 05/26/17 07:11 05/26/17 07:11 05/21/17 03:45 DSM 5 Symptoms Update: Shortly patient is 21 year old female, self reported history of depression, one suicidal attempt in the past in 2014 and one previous psychiatric admission in [facility] at the same year, patient lives with her mother, has multiple medical issues including spina bifida, patient is unable to walk, ambulates either with wheelchair or crutches, currently does not work or attending college. pt was brought by ambulance and her cousin s/p intentional overdose on medications (r/o suicidal attempt), pt was not able to contract for safety, needs further evaluation and stabilization. pt was seen and examined in her room, pt said she had vomiting twice right after she ate. pt was evaluated by [facility] team PPI and zofran started, they will consider liquid diet if vomiting will be persisting, will f/u on labs.consult appreciated. vomiting could be related to celexa, but not sure, will monitor. pt does not feel it is related to it, will decrease to 5mg. as per report pt was tearful, not opened up about her feelings, secretive. pt allowed to have a meeting with pt's mother, but does not want to participate. pt said that she has some future oriented plans "I want to go back to college, this is what my mother wants", pt was advised to think what does she want and make decision what is right for her, again encouraged to participate in family meeting. pt tolerates meds well, no side effects observed or reported, AIMS 0, no EPS. Impression: MDD Medication Change: Yes (wellubtrin d/c, celexa started) Medical Record Reviewed: Yes Consults ordered or reviewed: medical and PT consult appreciated as PT eval pt could use her crutches under supervision twice a day. medical f/u appreciated for vomiting. Mental Status Examination - Cognitive Function Orientation: Person Memory: Intact Attention: Poor (some improvement) Concentration: Poor (some improvement) Association: WNL Fund of Knowledge: WNL - Mood Mood: Depressed ( "feels okay".) - Affect Affect: Constricted, Flat (and tearful, mood congruent) - Speech Speech: Appropriate - Formal Thought Process Formal Thought Process: No Impairment - Suicidal Ideation Suicidal Ideation: No - Homicidal Ideation Homicidal Ideation: No Goal/Treatment Plan - Goal/Treatment Plan Need for Continued Stay: Remain at risks for inpatient hospitalization, Severe depression anxiety, Discharge may exacerbated symptoms, Severe functional impairment Progress Toward Problem(s) and Goals/Treatment Plan: Milieu/structure/supportive therapy Medical consult appreciated, see medical team note for more detailed info SIM consultation for discharge plan and social issues Med management will decrease celexa 5mg po daily started for depression sonata as needed for insomnia, pt does not want to be on it as per PT, pt could walk using her crutches twice a day under supervision of staff. Family involvement, SIM will schedule either family meeting or conference call Follow up on labs Will monitor closely Pt was educated about risk/benefits and alternatives of medications, coping strategies (safety plan, suicide prevention), relapse prevention, importance of follow up with psychiatrist and therapist, stay away from drugs/alcohol/smoking Estimated Date of D/C: 05/29/17
[2017-05-26] MEDS: Pantoprazole 20 mg EC Tab PO SCH (16:14)
[2017-05-26 17:17] LABS: BASO # 0.01 K/mm3 (0.0-2.0); BASO % 0.2 % (0.0-3.0); EOS # 0.1 (0.0-0.7); EOS % 1.2 % (1.5-5.0); GRAN # 2.36 (1.4-6.5); GRAN % 45.4 % (50.0-68.0); HEMOGLOBIN 12.6 g/dL (12.0-16.0); LYMPH # 2.4 (1.2-3.4); LYMPH % 45.9 % (22.0-35.0); MEAN CELL VOLUME 87.1 fl (80.0-105.0); MEAN CORPUSCULAR HEMOGLOBIN 27.2 pg (25.0-35.0); MEAN CORPUSCULAR HGB CONC 31.2 g/dl (31.0-37.0); MEAN PLATELET VOLUME 10.5 fl (7.0-11.0); MONO # 0.4 (0.1-0.6); MONO % 7.3 % (1.0-6.0); RBC 4.64 10^6/uL (3.5-6.1); RED CELL DISTRIBUTION WIDTH 13.5 % (11.5-14.5); WHITE BLOOD COUNT 5.2 10^3/ul (4.5-11.0)
[2017-05-26 17:25] LABS: ALB/GLOB RATIO 1.3 (1.1-1.8); ALBUMIN 4.3 g/dL (3.0-4.8); ALT/SGPT 24 U/L (7-56); AST/SGOT 26 U/L (14-36); BLOOD UREA NITROGEN 14 mg/dL (7-21); CALCIUM 9.5 mg/dL (8.4-10.5); GFR AFRICAN-AMERICAN > 60; GFR NON-AFRICAN AMERICAN > 60
[2017-05-27] MEDS: Pantoprazole 20 mg EC Tab PO SCH ×2 (09:45→17:12)
[2017-05-27] MEDS: Multivitamin Therapeutic Tab PO SCH (09:45)
--- NOTE | 2017-05-27 16:08 | PCM.PYCHPN ---
Psychiatric Progress Note - Psychiatric Progress Note Patient seen today, length of contact: 30min Patient Chief Complaint: "I don't think I am ready to go" Problems Identified/Issues Discussed: Suicide/ homicide prevention, past psychiatric h/o, current psychiatric symptoms , medical problems, risk/benefits and alternatives of medications, medications compliance, coping strategies, substance abuse h/o, relapse prevention, importance of follow up with psychiatrist and therapist, discharge plan. Medical Problems: spina bifida Diagnostic Results: 05/20/17 21:30 05/20/17 21:30 Lab Results 05/21/17 08:00: RPR Nonreactive 05/21/17 08:00: TSH 3rd Generation 0.35 L 05/21/17 08:00: Fasting Glucose 83, Triglycerides 50, Cholesterol 167, LDL Cholesterol Direct 74, HDL Cholesterol 60 05/21/17 02:30: pCO2 33 L, pO2 126.0 H, HCO3 20.4 L, ABG pH 7.40, ABG Total CO2 21.4 L, ABG O2 Saturation 99.5 H, ABG Base Excess -3.6 L, ABG Potassium 3.5 L, Glucose 114 H, Lactate 1.1, FiO2 21.0, Sodium 142.0, Chloride 114.0 H, Arterial Blood Potassium 3.5 L 05/21/17 01:20: Salicylates 6, Acetaminophen 16.0 05/20/17 23:13: Urine Color Yellow, Urine Appearance Clear, Urine pH 6.5, Ur Specific [place] 1.010, Urine Protein Negative, Urine Glucose (UA) Negative, Urine Ketones Negative, Urine Blood Negative, Urine Nitrate Positive H, Urine Bilirubin Negative, Urine Urobilinogen 0.2, Ur Leukocyte Esterase Negative, Urine RBC 0 - 2, Urine WBC 1 - 3, Ur Epithelial Cells 0 - 2, Urine Bacteria Many 05/20/17 23:13: Urine Opiates Screen Negative, Urine Methadone Screen Negative, Ur Barbiturates Screen Negative, Ur Phencyclidine Scrn Negative, Ur Amphetamines Screen Negative, U Benzodiazepines Scrn Negative, U Oth Cocaine Metabols Negative, U Cannabinoids Screen Negative 05/20/17 21:30: Alcohol, Quantitative < 10 05/20/17 21:30: Salicylates < 1 L, Acetaminophen 12.0 05/20/17 21:30: Sodium 141, Potassium 4.3, Chloride 104, Carbon Dioxide 22, Anion Gap 18, BUN 15, Creatinine 0.5 L, Est GFR ( Amer) > 60, Est GFR ( Non-Af Amer) > 60, Random Glucose 96, Calcium 10.2, Total Bilirubin 0.5, AST 25 , ALT 28, Alkaline Phosphatase 91, Total Protein 8.1, Albumin 4.5, Globulin 3.6 , Albumin/Globulin Ratio 1.2 05/20/17 21:30: WBC 6.0, RBC 4.74, Hgb 12.9, Hct 40.4, MCV 85.2, MCH 27.2, MCHC 31.9, RDW 13.4, Plt Count 249, MPV 10.8, Gran % 62.6, Lymph % (Auto) 26.4, [place] % (Auto) 10.1 H, Eos % (Auto) 0.7 L, Baso % (Auto) 0.2, Gran # 3.73, Lymph # ( Auto) 1.6, [place] # (Auto) 0.6, Eos # (Auto) 0.0, Baso # (Auto) 0.01 Vital Signs Temp Pulse Resp BP Pulse Ox 05/22/17 07:43 98.2 F 81 20 96/51 L 05/21/17 16:00 99 H 116/62 05/21/17 03:45 97.2 F L 92 H 16 124/84 97 05/21/17 01:26 98.4 F 87 18 114/72 100 05/20/17 23:10 89 18 108/48 L 98 05/20/17 21:52 98.4 F 99 H 18 134/84 100 Temp Pulse Resp BP Pulse Ox 98.1 F 90 20 114/66 97 05/25/17 07:30 05/25/17 07:30 05/25/17 07:30 05/25/17 07:30 05/21/17 03:45 Temp Pulse Resp BP Pulse Ox 98.2 F 82 20 82/50 L 97 05/26/17 07:11 05/26/17 07:11 05/26/17 07:11 05/26/17 07:11 05/21/17 03:45 DSM 5 Symptoms Update: Shortly patient is 21 year old female, self reported history of depression, one suicidal attempt in the past in 2014 and one previous psychiatric admission in [facility] at the same year, patient lives with her mother, has multiple medical issues including spina bifida, patient is unable to walk, ambulates either with wheelchair or crutches, currently does not work or attending college. pt was brought by ambulance and her cousin s/p intentional overdose on medications (r/o suicidal attempt), pt was not able to contract for safety, needs further evaluation and stabilization. pt was seen and examined in her room, pt said she did not have any vomiting episodes, labs WNL. celexa was increased again family meeting scheduled for tomorrow. pt said she feels depressed and hopeless and "I don't feel ready to be discharged" as per report pt was tearful, not opened up about her feelings, secretive. pt allowed to have a meeting with pt's mother, but does not want to participate. pt said that she has some future oriented plans "I want to go back to college, this is what my mother wants", pt was advised to think what does she want and make decision what is right for her, again encouraged to participate in family meeting tomorrow. pt tolerates meds well, no side effects observed or reported, AIMS 0, no EPS. Impression: MDD Medication Change: Yes (wellubtrin d/c, celexa started) Medical Record Reviewed: Yes Mental Status Examination - Cognitive Function Orientation: Person Memory: Intact Attention: Poor (some improvement) Concentration: Poor (some improvement) Association: WNL Fund of Knowledge: WNL - Mood Mood: Depressed ( "feels okay".) - Affect Affect: Constricted, Flat (and tearful, mood congruent) - Speech Speech: Appropriate - Formal Thought Process Formal Thought Process: No Impairment - Suicidal Ideation Suicidal Ideation: No - Homicidal Ideation Homicidal Ideation: No Goal/Treatment Plan - Goal/Treatment Plan Need for Continued Stay: Remain at risks for inpatient hospitalization, Severe depression anxiety, Discharge may exacerbated symptoms, Severe functional impairment Progress Toward Problem(s) and Goals/Treatment Plan: Milieu/structure/supportive therapy Medical consult appreciated, see medical team note for more detailed info SW consultation for discharge plan and social issues Med management celexa 10mg po daily started for depression sonata as needed for insomnia, pt does not want to be on it as per PT, pt could walk using her crutches twice a day under supervision of staff. Family meeting tomorrow Follow up on labs Will monitor closely Pt was educated about risk/benefits and alternatives of medications, coping strategies (safety plan, suicide prevention), relapse prevention, importance of follow up with psychiatrist and therapist, stay away from drugs/alcohol/smoking Estimated Date of D/C: 06/01/17
[2017-05-28] MEDS: Multivitamin Therapeutic Tab PO SCH (09:06)
[2017-05-28] MEDS: Pantoprazole 20 mg EC Tab PO SCH ×2 (09:06→17:22)
--- NOTE | 2017-05-28 16:02 | PCM.PYCHPN ---
Psychiatric Progress Note - Psychiatric Progress Note Patient seen today, length of contact: 30min Patient Chief Complaint: "I did not sleep last night" Problems Identified/Issues Discussed: Suicide/ homicide prevention, past psychiatric h/o, current psychiatric symptoms , medical problems, risk/benefits and alternatives of medications, medications compliance, coping strategies, substance abuse h/o, relapse prevention, importance of follow up with psychiatrist and therapist, discharge plan. Medical Problems: spina bifida Diagnostic Results: 05/20/17 21:30 05/20/17 21:30 Lab Results 05/21/17 08:00: RPR Nonreactive 05/21/17 08:00: TSH 3rd Generation 0.35 L 05/21/17 08:00: Fasting Glucose 83, Triglycerides 50, Cholesterol 167, LDL Cholesterol Direct 74, HDL Cholesterol 60 05/21/17 02:30: pCO2 33 L, pO2 126.0 H, HCO3 20.4 L, ABG pH 7.40, ABG Total CO2 21.4 L, ABG O2 Saturation 99.5 H, ABG Base Excess -3.6 L, ABG Potassium 3.5 L, Glucose 114 H, Lactate 1.1, FiO2 21.0, Sodium 142.0, Chloride 114.0 H, Arterial Blood Potassium 3.5 L 05/21/17 01:20: Salicylates 6, Acetaminophen 16.0 05/20/17 23:13: Urine Color Yellow, Urine Appearance Clear, Urine pH 6.5, Ur Specific [place] 1.010, Urine Protein Negative, Urine Glucose (UA) Negative, Urine Ketones Negative, Urine Blood Negative, Urine Nitrate Positive H, Urine Bilirubin Negative, Urine Urobilinogen 0.2, Ur Leukocyte Esterase Negative, Urine RBC 0 - 2, Urine WBC 1 - 3, Ur Epithelial Cells 0 - 2, Urine Bacteria Many 05/20/17 23:13: Urine Opiates Screen Negative, Urine Methadone Screen Negative, Ur Barbiturates Screen Negative, Ur Phencyclidine Scrn Negative, Ur Amphetamines Screen Negative, U Benzodiazepines Scrn Negative, U Oth Cocaine Metabols Negative, U Cannabinoids Screen Negative 05/20/17 21:30: Alcohol, Quantitative < 10 05/20/17 21:30: Salicylates < 1 L, Acetaminophen 12.0 05/20/17 21:30: Sodium 141, Potassium 4.3, Chloride 104, Carbon Dioxide 22, Anion Gap 18, BUN 15, Creatinine 0.5 L, Est GFR ( Amer) > 60, Est GFR ( Non-Af Amer) > 60, Random Glucose 96, Calcium 10.2, Total Bilirubin 0.5, AST 25 , ALT 28, Alkaline Phosphatase 91, Total Protein 8.1, Albumin 4.5, Globulin 3.6 , Albumin/Globulin Ratio 1.2 05/20/17 21:30: WBC 6.0, RBC 4.74, Hgb 12.9, Hct 40.4, MCV 85.2, MCH 27.2, MCHC 31.9, RDW 13.4, Plt Count 249, MPV 10.8, Gran % 62.6, Lymph % (Auto) 26.4, [place] % (Auto) 10.1 H, Eos % (Auto) 0.7 L, Baso % (Auto) 0.2, Gran # 3.73, Lymph # ( Auto) 1.6, [place] # (Auto) 0.6, Eos # (Auto) 0.0, Baso # (Auto) 0.01 Vital Signs Temp Pulse Resp BP Pulse Ox 05/22/17 07:43 98.2 F 81 20 96/51 L 05/21/17 16:00 99 H 116/62 05/21/17 03:45 97.2 F L 92 H 16 124/84 97 05/21/17 01:26 98.4 F 87 18 114/72 100 05/20/17 23:10 89 18 108/48 L 98 05/20/17 21:52 98.4 F 99 H 18 134/84 100 Temp Pulse Resp BP Pulse Ox 98.1 F 90 20 114/66 97 05/25/17 07:30 05/25/17 07:30 05/25/17 07:30 05/25/17 07:30 05/21/17 03:45 Temp Pulse Resp BP Pulse Ox 98.2 F 82 20 82/50 L 97 05/26/17 07:11 05/26/17 07:11 05/26/17 07:11 05/26/17 07:11 05/21/17 03:45 DSM 5 Symptoms Update: Shortly patient is 21 year old female, self reported history of depression, one suicidal attempt in the past in 2014 and one previous psychiatric admission in [facility] at the same year, patient lives with her mother, has multiple medical issues including spina bifida, patient is unable to walk, ambulates either with wheelchair or crutches, currently does not work or attending college. pt was brought by ambulance and her cousin s/p intentional overdose on medications (r/o suicidal attempt), pt was not able to contract for safety, needs further evaluation and stabilization. pt was seen and examined in her room, pt is sad and depressed, staid in her room up until 2pm, refused breakfast, pt said she did not sleep last night, offered meds, but pt refused. pt still has feeling of hopelessness and helplessness. family meeting took place today, pt's mother, SW and this conventional mortgage underwriter discussed d/c plan and med management IOP program Vocational program mother was appreciative, said she is willing to accept pt back if "she will try her best to be productive in her life", pt's mother said she did not want to kick pt out but pt was sleeping all day long, staying late on the computer, was refusing to go to school "it is unacceptable, I know she has physical limitations, but it is not the reason to stay home and feel sorry for herself". pt refused to participate in meeting. pt said that she has some future oriented plans "I want to go back to college, this is what my mother wants", pt was advised to think what does she want and make decision what is right for her, again encouraged to participate in family meeting tomorrow. pt tolerates meds well, no side effects observed or reported, AIMS 0, no EPS. Impression: MDD Medication Change: Yes (celexa increased) Medical Record Reviewed: Yes Consults ordered or reviewed: medical and PT consult appreciated as PT eval pt could use her crutches under supervision twice a day. medical f/u appreciated for vomiting. Mental Status Examination - Cognitive Function Orientation: Person Memory: Intact Attention: Poor (some improvement) Concentration: Poor (some improvement) Association: WNL Fund of Knowledge: WNL - Mood Mood: Depressed ( "feels okay".) - Affect Affect: Constricted, Flat (and tearful, mood congruent) - Speech Speech: Appropriate - Formal Thought Process Formal Thought Process: No Impairment - Suicidal Ideation Suicidal Ideation: No - Homicidal Ideation Homicidal Ideation: No Goal/Treatment Plan - Goal/Treatment Plan Need for Continued Stay: Remain at risks for inpatient hospitalization, Severe depression anxiety, Discharge may exacerbated symptoms, Severe functional impairment Progress Toward Problem(s) and Goals/Treatment Plan: Milieu/structure/supportive therapy Medical consult appreciated, see medical team note for more detailed info SW consultation for discharge plan and social issues Med management celexa will be increased to 15mg po daily tomorrow for depression sonata as needed for insomnia, pt does not want to be on it as per PT, pt could walk using her crutches twice a day under supervision of staff. Family meeting tomorrow Follow up on labs Will monitor closely Pt was educated about risk/benefits and alternatives of medications, coping strategies (safety plan, suicide prevention), relapse prevention, importance of follow up with psychiatrist and therapist, stay away from drugs/alcohol/smoking Estimated Date of D/C: 06/01/17
[2017-05-29] MEDS: Pantoprazole 20 mg EC Tab PO SCH ×2 (08:38→16:55)
[2017-05-29] MEDS: Multivitamin Therapeutic Tab PO SCH (08:38)
--- NOTE | 2017-05-29 12:24 | PCM.BM ---
<Abel Acosta - Last Filed: 05/29/17 12:26> Treatment Plan Problems - Problems identified on initial assessmt Hopelessness/Helplessness Date Initiated: 05/21/17 Time Initiated: 04:00 Assessment reference: NA Status: Active Priority: 1 Feelings of Worthlessness Date Initiated: 05/21/17 Time Initiated: 04:00 Assessment reference: NA Status: Active Priority: 2 Ineffective Coping Date Initiated: 05/21/17 Time Initiated: 04:00 Assessment reference: NA Status: Active Priority: 3 Medication Nonadherence Date Initiated: 05/21/17 Time Initiated: 04:00 Assessment reference: NA Status: Active Priority: 4 Self Care Deficit Date Initiated: 05/21/17 Time Initiated: 04:00 Assessment reference: NA Status: Active Priority: 5 Treatment assets and liabiliti Patient Assests: cooperative, cognitively intact, good interpersonal skills Patient Liabilities: financial problems, relationship conflicts - Milieu Protocol Maintain good personal hygiene: daily Encourage regular showers, every shift Remind patient to perform daily oral care, every shift Assist patient to perform ADL's Maintain personal safety: every shift Educate patient to report safety concerns to staff, every shift Monitor environment for contraband/sharps Medication safety: Monitor for expected outcome, potential side effects: every shift, Assess barriers to learning: every shift, Assess readiness for medication education: every shift Milieu Narrative: Milieu/structure/supportive therapy Medical consult appreciated, see medical team note for more detailed info SW consultation for discharge plan and social issues Med management celexa will be increased to 15mg po daily tomorrow for depression sonata as needed for insomnia, pt does not want to be on it as per PT, pt could walk using her crutches twice a day under supervision of staff. Family meeting tomorrow Follow up on labs Will monitor closely Pt was educated about risk/benefits and alternatives of medications, coping strategies (safety plan, suicide prevention), relapse prevention, importance of follow up with psychiatrist and therapist, stay away from drugs/alcohol/smoking Family Contact Family involvement: No known Family/SO - Goals for Treatment Patient goals for treatment: Improve mood, self esteem, and motivation. Discharge/Continuing Care - Education Needs Education Needs: Family Medication, Family Diagnosis/Disease Process, Family Coping Skills, Family Anger Management skills, Family Placement options, Family Community resources, Family Activities of Daily Living, Family Health Practices/ Safety, Family Aftercare Safety Plan, Patient Medication, Patient Diagnosis/ Disease Process, Patient Coping Skills, Patient Anger Management skills, Patient Placement options, Patient Community resources, Patient Activities of Daily Living, Patient Pain, Patient Nutrition, Patient Uses of Medical Equipment , Patient Health Practices/Safety, Patient Personal Hygiene/Grooming, Patient Aftercare Safety Plan, Patient Other (VOCATIONAL ASSISTANCE) - Discharge Discharge Criteria: Tolerates medication w/o severe side effects, Free of Suicidal thoughts, Ability to care for self - Treatment Team Participation Patient/Family/SO Statement: Milieu/structure/supportive therapy Medical consult appreciated, see medical team note for more detailed info SW consultation for discharge plan and social issues Med management celexa will be increased to 15mg po daily tomorrow for depression sonata as needed for insomnia, pt does not want to be on it as per PT, pt could walk using her crutches twice a day under supervision of staff. Family meeting tomorrow Follow up on labs Will monitor closely Pt was educated about risk/benefits and alternatives of medications, coping strategies (safety plan, suicide prevention), relapse prevention, importance of follow up with psychiatrist and therapist, stay away from drugs/alcohol/smoking Treatment Plan Review - Problem Hopelessness/Helplessness Time Initiated: 04:00 Feelings of Worthlessness Time Initiated: 04:00 Ineffective Coping Time Initiated: 04:00 Medication Nonadherence Time Initiated: 04:00 Self Care Deficit Time Initiated: 04:00 <Sofia Hall - Last Filed: 05/29/17 17:07> - Diagnosis (1) Severe major depression Status: Acute Interventions: 05/29/17 17:06 depressive symptoms still present, but pt is more hopeful denied thoughts of harming self or others
--- NOTE | 2017-05-29 17:17 | PCM.PYCHPN ---
Psychiatric Progress Note - Psychiatric Progress Note Patient seen today, length of contact: 30min Patient Chief Complaint: "I do not know what I could do if suicidal thoughts will be back..." Problems Identified/Issues Discussed: Suicide/ homicide prevention, past psychiatric h/o, current psychiatric symptoms , medical problems, risk/benefits and alternatives of medications, medications compliance, coping strategies, substance abuse h/o, relapse prevention, importance of follow up with psychiatrist and therapist, discharge plan. Medical Problems: spina bifida pt ambulates with crutches or at wheelchair. Diagnostic Results: 05/20/17 21:30 05/20/17 21:30 Lab Results 05/21/17 08:00: RPR Nonreactive 05/21/17 08:00: TSH 3rd Generation 0.35 L 05/21/17 08:00: Fasting Glucose 83, Triglycerides 50, Cholesterol 167, LDL Cholesterol Direct 74, HDL Cholesterol 60 05/21/17 02:30: pCO2 33 L, pO2 126.0 H, HCO3 20.4 L, ABG pH 7.40, ABG Total CO2 21.4 L, ABG O2 Saturation 99.5 H, ABG Base Excess -3.6 L, ABG Potassium 3.5 L, Glucose 114 H, Lactate 1.1, FiO2 21.0, Sodium 142.0, Chloride 114.0 H, Arterial Blood Potassium 3.5 L 05/21/17 01:20: Salicylates 6, Acetaminophen 16.0 05/20/17 23:13: Urine Color Yellow, Urine Appearance Clear, Urine pH 6.5, Ur Specific [place] 1.010, Urine Protein Negative, Urine Glucose (UA) Negative, Urine Ketones Negative, Urine Blood Negative, Urine Nitrate Positive H, Urine Bilirubin Negative, Urine Urobilinogen 0.2, Ur Leukocyte Esterase Negative, Urine RBC 0 - 2, Urine WBC 1 - 3, Ur Epithelial Cells 0 - 2, Urine Bacteria Many 05/20/17 23:13: Urine Opiates Screen Negative, Urine Methadone Screen Negative, Ur Barbiturates Screen Negative, Ur Phencyclidine Scrn Negative, Ur Amphetamines Screen Negative, U Benzodiazepines Scrn Negative, U Oth Cocaine Metabols Negative, U Cannabinoids Screen Negative 05/20/17 21:30: Alcohol, Quantitative < 10 05/20/17 21:30: Salicylates < 1 L, Acetaminophen 12.0 05/20/17 21:30: Sodium 141, Potassium 4.3, Chloride 104, Carbon Dioxide 22, Anion Gap 18, BUN 15, Creatinine 0.5 L, Est GFR ( Amer) > 60, Est GFR ( Non-Af Amer) > 60, Random Glucose 96, Calcium 10.2, Total Bilirubin 0.5, AST 25 , ALT 28, Alkaline Phosphatase 91, Total Protein 8.1, Albumin 4.5, Globulin 3.6 , Albumin/Globulin Ratio 1.2 05/20/17 21:30: WBC 6.0, RBC 4.74, Hgb 12.9, Hct 40.4, MCV 85.2, MCH 27.2, MCHC 31.9, RDW 13.4, Plt Count 249, MPV 10.8, Gran % 62.6, Lymph % (Auto) 26.4, [place] % (Auto) 10.1 H, Eos % (Auto) 0.7 L, Baso % (Auto) 0.2, Gran # 3.73, Lymph # ( Auto) 1.6, [place] # (Auto) 0.6, Eos # (Auto) 0.0, Baso # (Auto) 0.01 Vital Signs Temp Pulse Resp BP Pulse Ox 05/22/17 07:43 98.2 F 81 20 96/51 L 05/21/17 16:00 99 H 116/62 05/21/17 03:45 97.2 F L 92 H 16 124/84 97 05/21/17 01:26 98.4 F 87 18 114/72 100 05/20/17 23:10 89 18 108/48 L 98 05/20/17 21:52 98.4 F 99 H 18 134/84 100 Temp Pulse Resp BP Pulse Ox 98.1 F 90 20 114/66 97 05/25/17 07:30 05/25/17 07:30 05/25/17 07:30 05/25/17 07:30 05/21/17 03:45 Temp Pulse Resp BP Pulse Ox 98.2 F 82 20 82/50 L 97 05/26/17 07:11 05/26/17 07:11 05/26/17 07:11 05/26/17 07:11 05/21/17 03:45 Temp Pulse Resp BP Pulse Ox 98.1 F 83 20 96/55 L 97 05/29/17 07:32 05/29/17 07:32 05/29/17 07:32 05/29/17 07:32 05/21/17 03:45 DSM 5 Symptoms Update: Shortly patient is 21 year old female, self reported history of depression, one suicidal attempt in the past in 2014 and one previous psychiatric admission in [facility] at the same year, patient lives with her mother, has multiple medical issues including spina bifida, patient is unable to walk, ambulates either with wheelchair or crutches, currently does not work or attending college. pt was brought by ambulance and her cousin s/p intentional overdose on medications (r/o suicidal attempt), pt was not able to contract for safety, needs further evaluation and stabilization. pt was seen and examined at the treatment team meeting, addressed future plans pt said she wants to go back to college, pt refused to participate in family meeting with her mother yesterday, this junior technical writer and SW educated about d/c planning, vocational program and IOP referral. pt seems to be disengaged, not interested in conversation. pt's affect became brighter when was discussed about her hobby music and dancing. at the same time pt "I don't know what I will do if I will have thoughts of harming self", pt was educated about safety plan, pt seems understanding. pt tolerates current meds well, no side effects observed or reported, AIMS 0, no EPS. pt was on wellbutrin, but had a headaches, celexa was initiated, but pt had vomiting and nausea on the first day, then it was slowly titrated to 15mg daily. as per staff pt is self isolating, but attends afternoon groups, pt usually sleeps till 2pm. Impression: MDD Medication Change: Yes (celexa increased) Medical Record Reviewed: Yes Mental Status Examination - Cognitive Function Orientation: Person Memory: Intact Attention: Poor (some improvement) Concentration: Poor (some improvement) Association: WNL Fund of Knowledge: WNL - Mood Mood: Depressed ( "feels okay".) - Affect Affect: Constricted, Flat (and tearful, mood congruent) - Speech Speech: Appropriate - Formal Thought Process Formal Thought Process: No Impairment - Suicidal Ideation Suicidal Ideation: No - Homicidal Ideation Homicidal Ideation: No Goal/Treatment Plan - Goal/Treatment Plan Need for Continued Stay: Remain at risks for inpatient hospitalization, Severe depression anxiety, Discharge may exacerbated symptoms, Severe functional impairment Progress Toward Problem(s) and Goals/Treatment Plan: Milieu/structure/supportive therapy Medical consult appreciated, see medical team note for more detailed info SW consultation for discharge plan and social issues Med management celexa 15mg po daily for depression sonata as needed for insomnia, pt willing to take it as per PT, pt could walk using her crutches twice a day under supervision of staff. Family meeting tomorrow Follow up on labs Will monitor closely Pt was educated about risk/benefits and alternatives of medications, coping strategies (safety plan, suicide prevention), relapse prevention, importance of follow up with psychiatrist and therapist, stay away from drugs/alcohol/smoking Estimated Date of D/C: 06/01/17
--- NOTE | 2017-05-30 10:05 | PCM.PYCHPN ---
Psychiatric Progress Note - Psychiatric Progress Note Patient seen today, length of contact: 25 min Patient Chief Complaint: "getting a little better". Problems Identified/Issues Discussed: I reviewed recent notes and patient was interviewed at bedside. Patient is well -oriented to month, year, location and circumstances. Grooming is acceptable. Patient reports that she is getting a little better. Her affect remains constricted and a little flat. Patient denies any side effects and sleep was restless last night. Thought process is coherent and responses are relevant. She denies any new discomfort or pain. Staff notes indicate that she has been in control on the unit. She has been attending and participating in groups. She appears to be doing better. There were no behavioral issues over the weekend. Diagnostic Results: Major Depressive Disorder, Severe Medication Change: Yes (Sonata increased to 10 mg HS prn on 05/30/17) Medical Record Reviewed: Yes Mental Status Examination - Cognitive Function Orientation: Person, Place, Situation Memory: Intact Attention: Poor (some improvement) Concentration: Poor (some improvement) Association: WNL Fund of Knowledge: WNL - Mood Mood: Depressed ( "feels okay, a little better".) - Affect Affect: Constricted, Flat (and tearful, mood congruent) - Speech Speech: Appropriate - Formal Thought Process Formal Thought Process: No Impairment ("a little better") - Suicidal Ideation Suicidal Ideation: No - Homicidal Ideation Homicidal Ideation: No Goal/Treatment Plan - Goal/Treatment Plan Need for Continued Stay: Remain at risks for inpatient hospitalization, Severe depression anxiety, Discharge may exacerbated symptoms, Severe functional impairment Progress Toward Problem(s) and Goals/Treatment Plan: c/w current tx and plan No new weekend labs thus far Vitals reviewed and noted below: 05/30/17 07:51 Temperature 98.1 F Pulse Rate 81 Respiratory 20 Rate Blood Pressure 90/55 L Estimated Date of D/C: 06/01/17
[2017-05-30] MEDS: Pantoprazole 20 mg EC Tab PO SCH ×2 (13:28→17:25)
[2017-05-30] MEDS: Multivitamin Therapeutic Tab PO SCH (13:28)
[2017-05-31] MEDS: Pantoprazole 20 mg EC Tab PO SCH ×2 (06:26→16:41)
--- NOTE | 2017-05-31 12:02 | PCM.PYCHPN ---
Psychiatric Progress Note - Psychiatric Progress Note Patient seen today, length of contact: 25 min Patient Chief Complaint: "getting a little better". Problems Identified/Issues Discussed: I reviewed recent notes and patient was interviewed at bedside. Patient is well- oriented to month, year, location and circumstances. Grooming is acceptable. Patient reports that she is getting a little better. Her affect remains constricted and a little flat. Patient denies any side effects and slept better last night. Thought process is coherent and responses are relevant. She denies any new discomfort or pain. Staff notes indicate that she has been in control on the unit. She has been attending and participating in groups. More visible in the PM yesterday because she slept until noon. She appears to be doing better but still passive. There were no behavioral issues over the weekend. Diagnostic Results: Major Depressive Disorder, Severe Medication Change: Yes (Sonata increased to 10 mg HS prn on 05/30/17) Medical Record Reviewed: Yes Mental Status Examination - Cognitive Function Orientation: Person, Place, Situation Memory: Intact Attention: Poor (some improvement) Concentration: Poor (some improvement) Association: WNL Fund of Knowledge: WNL - Mood Mood: Depressed ( "feels okay, a little better".) - Affect Affect: Constricted, Flat (and tearful, mood congruent), Other (passive) - Speech Speech: Appropriate - Formal Thought Process Formal Thought Process: No Impairment ("a little better") - Suicidal Ideation Suicidal Ideation: No - Homicidal Ideation Homicidal Ideation: No Goal/Treatment Plan - Goal/Treatment Plan Need for Continued Stay: Remain at risks for inpatient hospitalization, Severe depression anxiety, Discharge may exacerbated symptoms, Severe functional impairment Progress Toward Problem(s) and Goals/Treatment Plan: c/w current tx and plan No new weekend labs Vitals reviewed and noted below: Selected Entries 05/30/17 05/31/17 07:51 07:25 Temperature 98.1 F 97.8 F Pulse Rate 81 80 Respiratory 20 20 Rate Blood Pressure 90/55 L 95/52 L Estimated Date of D/C: 06/01/17
[2017-05-31] MEDS: Multivitamin Therapeutic Tab PO SCH (12:37)
[2017-06-01] MEDS: Multivitamin Therapeutic Tab PO SCH (09:14)
[2017-06-01] MEDS: Pantoprazole 20 mg EC Tab PO SCH ×2 (09:15→16:54)
--- NOTE | 2017-06-01 18:07 | PCM.PYCHPN ---
Psychiatric Progress Note - Psychiatric Progress Note Patient seen today, length of contact: 30min Patient Chief Complaint: "I am afraid my mom will " Problems Identified/Issues Discussed: Suicide/ homicide prevention, past psychiatric h/o, current psychiatric symptoms , medical problems, risk/benefits and alternatives of medications, medications compliance, coping strategies, substance abuse h/o, relapse prevention, importance of follow up with psychiatrist and therapist, discharge plan. Medical Problems: spina bifida pt ambulates with crutches or at wheelchair. Diagnostic Results: 05/20/17 21:30 05/20/17 21:30 Lab Results 05/21/17 08:00: RPR Nonreactive 05/21/17 08:00: TSH 3rd Generation 0.35 L 05/21/17 08:00: Fasting Glucose 83, Triglycerides 50, Cholesterol 167, LDL Cholesterol Direct 74, HDL Cholesterol 60 05/21/17 02:30: pCO2 33 L, pO2 126.0 H, HCO3 20.4 L, ABG pH 7.40, ABG Total CO2 21.4 L, ABG O2 Saturation 99.5 H, ABG Base Excess -3.6 L, ABG Potassium 3.5 L, Glucose 114 H, Lactate 1.1, FiO2 21.0, Sodium 142.0, Chloride 114.0 H, Arterial Blood Potassium 3.5 L 05/21/17 01:20: Salicylates 6, Acetaminophen 16.0 05/20/17 23:13: Urine Color Yellow, Urine Appearance Clear, Urine pH 6.5, Ur Specific [place] 1.010, Urine Protein Negative, Urine Glucose (UA) Negative, Urine Ketones Negative, Urine Blood Negative, Urine Nitrate Positive H, Urine Bilirubin Negative, Urine Urobilinogen 0.2, Ur Leukocyte Esterase Negative, Urine RBC 0 - 2, Urine WBC 1 - 3, Ur Epithelial Cells 0 - 2, Urine Bacteria Many 05/20/17 23:13: Urine Opiates Screen Negative, Urine Methadone Screen Negative, Ur Barbiturates Screen Negative, Ur Phencyclidine Scrn Negative, Ur Amphetamines Screen Negative, U Benzodiazepines Scrn Negative, U Oth Cocaine Metabols Negative, U Cannabinoids Screen Negative 05/20/17 21:30: Alcohol, Quantitative < 10 05/20/17 21:30: Salicylates < 1 L, Acetaminophen 12.0 05/20/17 21:30: Sodium 141, Potassium 4.3, Chloride 104, Carbon Dioxide 22, Anion Gap 18, BUN 15, Creatinine 0.5 L, Est GFR ( Amer) > 60, Est GFR ( Non-Af Amer) > 60, Random Glucose 96, Calcium 10.2, Total Bilirubin 0.5, AST 25 , ALT 28, Alkaline Phosphatase 91, Total Protein 8.1, Albumin 4.5, Globulin 3.6 , Albumin/Globulin Ratio 1.2 05/20/17 21:30: WBC 6.0, RBC 4.74, Hgb 12.9, Hct 40.4, MCV 85.2, MCH 27.2, MCHC 31.9, RDW 13.4, Plt Count 249, MPV 10.8, Gran % 62.6, Lymph % (Auto) 26.4, [place] % (Auto) 10.1 H, Eos % (Auto) 0.7 L, Baso % (Auto) 0.2, Gran # 3.73, Lymph # ( Auto) 1.6, [place] # (Auto) 0.6, Eos # (Auto) 0.0, Baso # (Auto) 0.01 Vital Signs Temp Pulse Resp BP Pulse Ox 05/22/17 07:43 98.2 F 81 20 96/51 L 05/21/17 16:00 99 H 116/62 05/21/17 03:45 97.2 F L 92 H 16 124/84 97 05/21/17 01:26 98.4 F 87 18 114/72 100 05/20/17 23:10 89 18 108/48 L 98 05/20/17 21:52 98.4 F 99 H 18 134/84 100 Temp Pulse Resp BP Pulse Ox 98.1 F 90 20 114/66 97 05/25/17 07:30 05/25/17 07:30 05/25/17 07:30 05/25/17 07:30 05/21/17 03:45 Temp Pulse Resp BP Pulse Ox 98.2 F 82 20 82/50 L 97 05/26/17 07:11 05/26/17 07:11 05/26/17 07:11 05/26/17 07:11 05/21/17 03:45 Temp Pulse Resp BP Pulse Ox 98.1 F 83 20 96/55 L 97 05/29/17 07:32 05/29/17 07:32 05/29/17 07:32 05/29/17 07:32 05/21/17 03:45 DSM 5 Symptoms Update: Shortly patient is 21 year old female, self reported history of depression, one suicidal attempt in the past in 2014 and one previous psychiatric admission in [facility] at the same year, patient lives with her mother, has multiple medical issues including spina bifida, patient is unable to walk, ambulates either with wheelchair or crutches, currently does not work or attending college. pt was brought by ambulance and her cousin s/p intentional overdose on medications (r/o suicidal attempt), pt was not able to contract for safety, needs further evaluation and stabilization. pt was seen and examined at the hallway, earlier pt was observed crying, this policy writer asked RN to speak to the pt because this policy writer was dealing with acute situation, then pt was observed walking using the crutches crying as well, this policy writer had prolonged conversation, pt said that she is "scared" when was asked why she feels scared pt said that her mother has a lot of medical issues and pt is afraid that she is going to "I love her, I am so sorry what is going on, I don't want her do ", pt was provided emotional support and empathic listening. pt said "I cannot be homeless, I have nobody but her". pt opened up first time during this admission. this policy writer needed to give pt stat dose of xanax 0.5mg po, later on pt said she feels "little better". pt said "if something happened to her (mother), I am coming back to this hospital because I will be in bad shape..". pt is willing to take meds now, last week refused to take meds for insomnia. as per staff pt is self isolating, but attends afternoon groups, tolerates meds well, no side effects observed or reported. AIMS 0, no EPS. Impression: MDD Medication Change: Yes (xanax added, celexa increased) Medical Record Reviewed: Yes Consults ordered or reviewed: medical and PT consult appreciated as PT eval pt could use her crutches under supervision twice a day. medical f/u appreciated for vomiting. over the weekend pt did not have any vomiting Mental Status Examination - Cognitive Function Orientation: Person, Place, Situation Memory: Intact Attention: Poor (some improvement) Concentration: Poor (some improvement) Association: WNL Fund of Knowledge: WNL - Mood Mood: Depressed ( "feels okay, a little better".) - Affect Affect: Constricted, Flat (and tearful, mood congruent), Other (passive) - Speech Speech: Appropriate - Formal Thought Process Formal Thought Process: No Impairment ("a little better") - Suicidal Ideation Suicidal Ideation: No - Homicidal Ideation Homicidal Ideation: No Goal/Treatment Plan - Goal/Treatment Plan Need for Continued Stay: Remain at risks for inpatient hospitalization, Severe depression anxiety, Discharge may exacerbated symptoms, Severe functional impairment Progress Toward Problem(s) and Goals/Treatment Plan: Milieu/structure/supportive therapy Medical consult appreciated, see medical team note for more detailed info SW consultation for discharge plan and social issues Med management celexa 20mg po daily for depression sonata as needed for insomnia, pt willing to take it xanax 0.25mg po tid for anxiety as per PT, pt could walk using her crutches twice a day under supervision of staff. Family meeting appreciated last week Follow up on labs Will monitor closely Pt was educated about risk/benefits and alternatives of medications, coping strategies (safety plan, suicide prevention), relapse prevention, importance of follow up with psychiatrist and therapist, stay away from drugs/alcohol/smoking Estimated Date of D/C: 06/04/17
[2017-06-02] MEDS: Multivitamin Therapeutic Tab PO SCH (08:54)
[2017-06-02] MEDS: Pantoprazole 20 mg EC Tab PO SCH ×2 (08:55→15:56)
--- NOTE | 2017-06-02 17:30 | PCM.PYCHPN ---
Psychiatric Progress Note - Psychiatric Progress Note Patient seen today, length of contact: 30min Patient Chief Complaint: "I feel better, I had a good night's sleep" Problems Identified/Issues Discussed: Suicide/ homicide prevention, past psychiatric h/o, current psychiatric symptoms , medical problems, risk/benefits and alternatives of medications, medications compliance, coping strategies, substance abuse h/o, relapse prevention, importance of follow up with psychiatrist and therapist, discharge plan. Medical Problems: spina bifida pt ambulates with crutches or at wheelchair. Diagnostic Results: 05/20/17 21:30 05/20/17 21:30 Lab Results 05/21/17 08:00: RPR Nonreactive 05/21/17 08:00: TSH 3rd Generation 0.35 L 05/21/17 08:00: Fasting Glucose 83, Triglycerides 50, Cholesterol 167, LDL Cholesterol Direct 74, HDL Cholesterol 60 05/21/17 02:30: pCO2 33 L, pO2 126.0 H, HCO3 20.4 L, ABG pH 7.40, ABG Total CO2 21.4 L, ABG O2 Saturation 99.5 H, ABG Base Excess -3.6 L, ABG Potassium 3.5 L, Glucose 114 H, Lactate 1.1, FiO2 21.0, Sodium 142.0, Chloride 114.0 H, Arterial Blood Potassium 3.5 L 05/21/17 01:20: Salicylates 6, Acetaminophen 16.0 05/20/17 23:13: Urine Color Yellow, Urine Appearance Clear, Urine pH 6.5, Ur Specific [place] 1.010, Urine Protein Negative, Urine Glucose (UA) Negative, Urine Ketones Negative, Urine Blood Negative, Urine Nitrate Positive H, Urine Bilirubin Negative, Urine Urobilinogen 0.2, Ur Leukocyte Esterase Negative, Urine RBC 0 - 2, Urine WBC 1 - 3, Ur Epithelial Cells 0 - 2, Urine Bacteria Many 05/20/17 23:13: Urine Opiates Screen Negative, Urine Methadone Screen Negative, Ur Barbiturates Screen Negative, Ur Phencyclidine Scrn Negative, Ur Amphetamines Screen Negative, U Benzodiazepines Scrn Negative, U Oth Cocaine Metabols Negative, U Cannabinoids Screen Negative 05/20/17 21:30: Alcohol, Quantitative < 10 05/20/17 21:30: Salicylates < 1 L, Acetaminophen 12.0 05/20/17 21:30: Sodium 141, Potassium 4.3, Chloride 104, Carbon Dioxide 22, Anion Gap 18, BUN 15, Creatinine 0.5 L, Est GFR ( Amer) > 60, Est GFR ( Non-Af Amer) > 60, Random Glucose 96, Calcium 10.2, Total Bilirubin 0.5, AST 25 , ALT 28, Alkaline Phosphatase 91, Total Protein 8.1, Albumin 4.5, Globulin 3.6 , Albumin/Globulin Ratio 1.2 05/20/17 21:30: WBC 6.0, RBC 4.74, Hgb 12.9, Hct 40.4, MCV 85.2, MCH 27.2, MCHC 31.9, RDW 13.4, Plt Count 249, MPV 10.8, Gran % 62.6, Lymph % (Auto) 26.4, [place] % (Auto) 10.1 H, Eos % (Auto) 0.7 L, Baso % (Auto) 0.2, Gran # 3.73, Lymph # ( Auto) 1.6, [place] # (Auto) 0.6, Eos # (Auto) 0.0, Baso # (Auto) 0.01 Vital Signs Temp Pulse Resp BP Pulse Ox 05/22/17 07:43 98.2 F 81 20 96/51 L 05/21/17 16:00 99 H 116/62 05/21/17 03:45 97.2 F L 92 H 16 124/84 97 05/21/17 01:26 98.4 F 87 18 114/72 100 05/20/17 23:10 89 18 108/48 L 98 05/20/17 21:52 98.4 F 99 H 18 134/84 100 Temp Pulse Resp BP Pulse Ox 98.1 F 90 20 114/66 97 05/25/17 07:30 05/25/17 07:30 05/25/17 07:30 05/25/17 07:30 05/21/17 03:45 Temp Pulse Resp BP Pulse Ox 98.2 F 82 20 82/50 L 97 05/26/17 07:11 05/26/17 07:11 05/26/17 07:11 05/26/17 07:11 05/21/17 03:45 Temp Pulse Resp BP Pulse Ox 98.1 F 83 20 96/55 L 97 05/29/17 07:32 05/29/17 07:32 05/29/17 07:32 05/29/17 07:32 05/21/17 03:45 DSM 5 Symptoms Update: Shortly patient is 21 year old female, self reported history of depression, one suicidal attempt in the past in 2014 and one previous psychiatric admission in [facility] at the same year, patient lives with her mother, has multiple medical issues including spina bifida, patient is unable to walk, ambulates either with wheelchair or crutches, currently does not work or attending college. pt was brought by ambulance and her cousin s/p intentional overdose on medications (r/o suicidal attempt), pt was not able to contract for safety, needs further evaluation and stabilization. pt was seen and examined at the hallway, patient presented with a brighter affect, patient reported that she is feeling "a little bit better". pt said she is less worried about her mother, yesterday pt was afraid that her mother could because she was on the medical side for diabetis. patient reported that she tolerates medications well, no side effects observed, patient slept better. Patient has some future oriented plans, wants to go back to college and to find a part-time job. as per staff patient participated in group activities, more visible in the unit. Patient tolerates medications well, no side effects observed or reported AIMS 0 , no EPS. Impression: MDD Medication Change: Yes (xanax added, celexa increased) Medical Record Reviewed: Yes Consults ordered or reviewed: medical and PT consult appreciated as PT eval pt could use her crutches under supervision twice a day. medical f/u appreciated for vomiting. over the weekend pt did not have any vomiting Mental Status Examination - Cognitive Function Orientation: Person, Place, Situation Memory: Intact Attention: Poor (some improvement) Concentration: Poor (some improvement) Association: WNL Fund of Knowledge: WNL - Mood Mood: Depressed ( "feels okay, a little better".) - Affect Affect: Constricted, Flat (and tearful, mood congruent), Other (passive) - Speech Speech: Appropriate - Formal Thought Process Formal Thought Process: No Impairment ("a little better") - Suicidal Ideation Suicidal Ideation: No - Homicidal Ideation Homicidal Ideation: No Goal/Treatment Plan - Goal/Treatment Plan Need for Continued Stay: Remain at risks for inpatient hospitalization, Severe depression anxiety, Discharge may exacerbated symptoms, Severe functional impairment Progress Toward Problem(s) and Goals/Treatment Plan: Milieu/structure/supportive therapy Medical consult appreciated, see medical team note for more detailed info SW consultation for discharge plan and social issues Med management celexa 20mg po daily for depression sonata as needed for insomnia, pt willing to take it xanax 0.25mg po tid for anxiety as per PT, pt could walk using her crutches twice a day under supervision of staff. Family meeting appreciated last week Follow up on labs Will monitor closely Pt was educated about risk/benefits and alternatives of medications, coping strategies (safety plan, suicide prevention), relapse prevention, importance of follow up with psychiatrist and therapist, stay away from drugs/alcohol/smoking Estimated Date of D/C: 06/04/17
[2017-06-03] MEDS: Multivitamin Therapeutic Tab PO SCH (09:26)
[2017-06-03] MEDS: Pantoprazole 20 mg EC Tab PO SCH ×2 (09:26→17:53)
--- NOTE | 2017-06-03 15:28 | PCM.PYCHPN ---
Psychiatric Progress Note - Psychiatric Progress Note Patient seen today, length of contact: 30min Patient Chief Complaint: "I feel little better" Problems Identified/Issues Discussed: Suicide/ homicide prevention, past psychiatric h/o, current psychiatric symptoms , medical problems, risk/benefits and alternatives of medications, medications compliance, coping strategies, substance abuse h/o, relapse prevention, importance of follow up with psychiatrist and therapist, discharge plan. Medical Problems: spina bifida pt ambulates with crutches or at wheelchair. Diagnostic Results: 05/20/17 21:30 05/20/17 21:30 Lab Results 05/21/17 08:00: RPR Nonreactive 05/21/17 08:00: TSH 3rd Generation 0.35 L 05/21/17 08:00: Fasting Glucose 83, Triglycerides 50, Cholesterol 167, LDL Cholesterol Direct 74, HDL Cholesterol 60 05/21/17 02:30: pCO2 33 L, pO2 126.0 H, HCO3 20.4 L, ABG pH 7.40, ABG Total CO2 21.4 L, ABG O2 Saturation 99.5 H, ABG Base Excess -3.6 L, ABG Potassium 3.5 L, Glucose 114 H, Lactate 1.1, FiO2 21.0, Sodium 142.0, Chloride 114.0 H, Arterial Blood Potassium 3.5 L 05/21/17 01:20: Salicylates 6, Acetaminophen 16.0 05/20/17 23:13: Urine Color Yellow, Urine Appearance Clear, Urine pH 6.5, Ur Specific [place] 1.010, Urine Protein Negative, Urine Glucose (UA) Negative, Urine Ketones Negative, Urine Blood Negative, Urine Nitrate Positive H, Urine Bilirubin Negative, Urine Urobilinogen 0.2, Ur Leukocyte Esterase Negative, Urine RBC 0 - 2, Urine WBC 1 - 3, Ur Epithelial Cells 0 - 2, Urine Bacteria Many 05/20/17 23:13: Urine Opiates Screen Negative, Urine Methadone Screen Negative, Ur Barbiturates Screen Negative, Ur Phencyclidine Scrn Negative, Ur Amphetamines Screen Negative, U Benzodiazepines Scrn Negative, U Oth Cocaine Metabols Negative, U Cannabinoids Screen Negative 05/20/17 21:30: Alcohol, Quantitative < 10 05/20/17 21:30: Salicylates < 1 L, Acetaminophen 12.0 05/20/17 21:30: Sodium 141, Potassium 4.3, Chloride 104, Carbon Dioxide 22, Anion Gap 18, BUN 15, Creatinine 0.5 L, Est GFR ( Amer) > 60, Est GFR ( Non-Af Amer) > 60, Random Glucose 96, Calcium 10.2, Total Bilirubin 0.5, AST 25 , ALT 28, Alkaline Phosphatase 91, Total Protein 8.1, Albumin 4.5, Globulin 3.6 , Albumin/Globulin Ratio 1.2 05/20/17 21:30: WBC 6.0, RBC 4.74, Hgb 12.9, Hct 40.4, MCV 85.2, MCH 27.2, MCHC 31.9, RDW 13.4, Plt Count 249, MPV 10.8, Gran % 62.6, Lymph % (Auto) 26.4, [place] % (Auto) 10.1 H, Eos % (Auto) 0.7 L, Baso % (Auto) 0.2, Gran # 3.73, Lymph # ( Auto) 1.6, [place] # (Auto) 0.6, Eos # (Auto) 0.0, Baso # (Auto) 0.01 Vital Signs Temp Pulse Resp BP Pulse Ox 05/22/17 07:43 98.2 F 81 20 96/51 L 05/21/17 16:00 99 H 116/62 05/21/17 03:45 97.2 F L 92 H 16 124/84 97 05/21/17 01:26 98.4 F 87 18 114/72 100 05/20/17 23:10 89 18 108/48 L 98 05/20/17 21:52 98.4 F 99 H 18 134/84 100 Temp Pulse Resp BP Pulse Ox 98.1 F 90 20 114/66 97 05/25/17 07:30 05/25/17 07:30 05/25/17 07:30 05/25/17 07:30 05/21/17 03:45 Temp Pulse Resp BP Pulse Ox 98.2 F 82 20 82/50 L 97 05/26/17 07:11 05/26/17 07:11 05/26/17 07:11 05/26/17 07:11 05/21/17 03:45 Temp Pulse Resp BP Pulse Ox 98.1 F 83 20 96/55 L 97 05/29/17 07:32 05/29/17 07:32 05/29/17 07:32 05/29/17 07:32 05/21/17 03:45 DSM 5 Symptoms Update: Shortly patient is 21 year old female, self reported history of depression, one suicidal attempt in the past in 2014 and one previous psychiatric admission in [facility] at the same year, patient lives with her mother, has multiple medical issues including spina bifida, patient is unable to walk, ambulates either with wheelchair or crutches, currently does not work or attending college. pt was brought by ambulance and her cousin s/p intentional overdose on medications (r/o suicidal attempt), pt was not able to contract for safety, needs further evaluation and stabilization. pt was seen and examined at the hallway, patient presented with a brighter affect, patient reported that she is feeling "a little bit better". pt said she spoke to her mother, mother will stay with pt over the weekend, pt has future oriented plans, wants to go back to college. patient reported that she tolerates medications well, no side effects observed, patient slept better. Patient has some future oriented plans, wants to go back to college and to find a part-time job. as per staff patient participated in group activities, more visible in the unit. Patient tolerates medications well, no side effects observed or reported AIMS 0 , no EPS. Impression: MDD Medication Change: Yes (xanax added, celexa increased) Medical Record Reviewed: Yes Mental Status Examination - Cognitive Function Orientation: Person, Place, Situation Memory: Intact Attention: Poor (some improvement) Concentration: Poor (some improvement) Association: WNL Fund of Knowledge: WNL - Mood Mood: Depressed ( "feels okay, a little better".) - Affect Affect: Constricted, Flat (and tearful, mood congruent), Other (passive) - Speech Speech: Appropriate - Formal Thought Process Formal Thought Process: No Impairment ("a little better") - Suicidal Ideation Suicidal Ideation: No - Homicidal Ideation Homicidal Ideation: No Goal/Treatment Plan - Goal/Treatment Plan Need for Continued Stay: Remain at risks for inpatient hospitalization, Severe depression anxiety, Discharge may exacerbated symptoms, Severe functional impairment Progress Toward Problem(s) and Goals/Treatment Plan: Milieu/structure/supportive therapy Medical consult appreciated, see medical team note for more detailed info SW consultation for discharge plan and social issues Med management celexa 20mg po daily for depression sonata as needed for insomnia, pt willing to take it xanax 0.25mg po tid for anxiety as per PT, pt could walk using her crutches twice a day under supervision of staff. Family meeting appreciated last week Follow up on labs Will monitor closely Pt was educated about risk/benefits and alternatives of medications, coping strategies (safety plan, suicide prevention), relapse prevention, importance of follow up with psychiatrist and therapist, stay away from drugs/alcohol/smoking Estimated Date of D/C: 06/05/17
[2017-06-04 06:57] VITALS: TEMP 98.1
[2017-06-04] MEDS: Pantoprazole 20 mg EC Tab PO SCH ×2 (09:04→17:19)
[2017-06-04] MEDS: Multivitamin Therapeutic Tab PO SCH (09:04)
--- NOTE | 2017-06-04 18:13 | PCM.PYCHPN ---
Psychiatric Progress Note - Psychiatric Progress Note Patient seen today, length of contact: 30min Patient Chief Complaint: "I feel little better" Problems Identified/Issues Discussed: Suicide/ homicide prevention, past psychiatric h/o, current psychiatric symptoms , medical problems, risk/benefits and alternatives of medications, medications compliance, coping strategies, substance abuse h/o, relapse prevention, importance of follow up with psychiatrist and therapist, discharge plan. Medical Problems: spina bifida pt ambulates with crutches or at wheelchair. Diagnostic Results: 05/20/17 21:30 05/20/17 21:30 Lab Results 05/21/17 08:00: RPR Nonreactive 05/21/17 08:00: TSH 3rd Generation 0.35 L 05/21/17 08:00: Fasting Glucose 83, Triglycerides 50, Cholesterol 167, LDL Cholesterol Direct 74, HDL Cholesterol 60 05/21/17 02:30: pCO2 33 L, pO2 126.0 H, HCO3 20.4 L, ABG pH 7.40, ABG Total CO2 21.4 L, ABG O2 Saturation 99.5 H, ABG Base Excess -3.6 L, ABG Potassium 3.5 L, Glucose 114 H, Lactate 1.1, FiO2 21.0, Sodium 142.0, Chloride 114.0 H, Arterial Blood Potassium 3.5 L 05/21/17 01:20: Salicylates 6, Acetaminophen 16.0 05/20/17 23:13: Urine Color Yellow, Urine Appearance Clear, Urine pH 6.5, Ur Specific [place] 1.010, Urine Protein Negative, Urine Glucose (UA) Negative, Urine Ketones Negative, Urine Blood Negative, Urine Nitrate Positive H, Urine Bilirubin Negative, Urine Urobilinogen 0.2, Ur Leukocyte Esterase Negative, Urine RBC 0 - 2, Urine WBC 1 - 3, Ur Epithelial Cells 0 - 2, Urine Bacteria Many 05/20/17 23:13: Urine Opiates Screen Negative, Urine Methadone Screen Negative, Ur Barbiturates Screen Negative, Ur Phencyclidine Scrn Negative, Ur Amphetamines Screen Negative, U Benzodiazepines Scrn Negative, U Oth Cocaine Metabols Negative, U Cannabinoids Screen Negative 05/20/17 21:30: Alcohol, Quantitative < 10 05/20/17 21:30: Salicylates < 1 L, Acetaminophen 12.0 05/20/17 21:30: Sodium 141, Potassium 4.3, Chloride 104, Carbon Dioxide 22, Anion Gap 18, BUN 15, Creatinine 0.5 L, Est GFR ( Amer) > 60, Est GFR ( Non-Af Amer) > 60, Random Glucose 96, Calcium 10.2, Total Bilirubin 0.5, AST 25 , ALT 28, Alkaline Phosphatase 91, Total Protein 8.1, Albumin 4.5, Globulin 3.6 , Albumin/Globulin Ratio 1.2 05/20/17 21:30: WBC 6.0, RBC 4.74, Hgb 12.9, Hct 40.4, MCV 85.2, MCH 27.2, MCHC 31.9, RDW 13.4, Plt Count 249, MPV 10.8, Gran % 62.6, Lymph % (Auto) 26.4, [place] % (Auto) 10.1 H, Eos % (Auto) 0.7 L, Baso % (Auto) 0.2, Gran # 3.73, Lymph # ( Auto) 1.6, [place] # (Auto) 0.6, Eos # (Auto) 0.0, Baso # (Auto) 0.01 Vital Signs Temp Pulse Resp BP Pulse Ox 05/22/17 07:43 98.2 F 81 20 96/51 L 05/21/17 16:00 99 H 116/62 05/21/17 03:45 97.2 F L 92 H 16 124/84 97 05/21/17 01:26 98.4 F 87 18 114/72 100 05/20/17 23:10 89 18 108/48 L 98 05/20/17 21:52 98.4 F 99 H 18 134/84 100 Temp Pulse Resp BP Pulse Ox 98.1 F 90 20 114/66 97 05/25/17 07:30 05/25/17 07:30 05/25/17 07:30 05/25/17 07:30 05/21/17 03:45 Temp Pulse Resp BP Pulse Ox 98.2 F 82 20 82/50 L 97 05/26/17 07:11 05/26/17 07:11 05/26/17 07:11 05/26/17 07:11 05/21/17 03:45 Temp Pulse Resp BP Pulse Ox 98.1 F 83 20 96/55 L 97 05/29/17 07:32 05/29/17 07:32 05/29/17 07:32 05/29/17 07:32 05/21/17 03:45 DSM 5 Symptoms Update: Shortly patient is 21 year old female, self reported history of depression, one suicidal attempt in the past in 2014 and one previous psychiatric admission in [facility] at the same year, patient lives with her mother, has multiple medical issues including spina bifida, patient is unable to walk, ambulates either with wheelchair or crutches, currently does not work or attending college. pt was brought by ambulance and her cousin s/p intentional overdose on medications (r/o suicidal attempt), pt was not able to contract for safety, needs further evaluation and stabilization. pt was seen and examined at the hallway, patient presented with a brighter affect, pt participated in dance/music groups, seems to be in good mood today, pt said she seems to be ready for discharge, pt was able to verbalize her safety plan, "I will call my mom, call 911 or call my friends". patient reported that she tolerates medications well, no side effects observed, patient slept better. Patient has some future oriented plans, wants to go back to college and to find a part-time job. as per staff patient participated in group activities, more visible in the unit. Patient tolerates medications well, no side effects observed or reported AIMS 0 , no EPS. Impression: MDD Medication Change: No Medical Record Reviewed: Yes Consults ordered or reviewed: medical and PT consult appreciated as PT eval pt could use her crutches under supervision twice a day. medical f/u appreciated for vomiting. over the weekend pt did not have any vomiting Mental Status Examination - Cognitive Function Orientation: Person, Place, Situation Memory: Intact Attention: WNL Concentration: WNL Association: WN Fund of Knowledge: WN - Mood Mood: Depressed ( "feels okay, a little better".) - Affect Affect: Constricted (more reactive today) - Speech Speech: Appropriate - Formal Thought Process Formal Thought Process: No Impairment - Suicidal Ideation Suicidal Ideation: No - Homicidal Ideation Homicidal Ideation: No Goal/Treatment Plan - Goal/Treatment Plan Need for Continued Stay: Remain at risks for inpatient hospitalization, Severe depression anxiety, Discharge may exacerbated symptoms, Severe functional impairment Progress Toward Problem(s) and Goals/Treatment Plan: Milieu/structure/supportive therapy Medical consult appreciated, see medical team note for more detailed info SW consultation for discharge plan and social issues Med management celexa 20mg po daily for depression sonata as needed for insomnia, pt willing to take it xanax 0.25mg po tid for anxiety as per PT, pt could walk using her crutches twice a day under supervision of staff. Family meeting appreciated last week Follow up on labs Will monitor closely Pt was educated about risk/benefits and alternatives of medications, coping strategies (safety plan, suicide prevention), relapse prevention, importance of follow up with psychiatrist and therapist, stay away from drugs/alcohol/smoking Estimated Date of D/C: 06/05/17
[2017-06-05 07:45] VITALS: BP 98/56; PULSE 91; RESP 20
[2017-06-05] MEDS: Multivitamin Therapeutic Tab PO SCH (09:34)
[2017-06-05] MEDS: Pantoprazole 20 mg EC Tab PO SCH ×2 (09:34→16:20)
--- NOTE | 2017-06-05 11:19 | PCM.BM ---
<Vickie Elizondo - Last Filed: 06/05/17 11:16> Treatment Plan Problems - Problems identified on initial assessmt Hopelessness/Helplessness Date Initiated: 05/21/17 Time Initiated: 04:00 Assessment reference: NA Status: Active Priority: 1 Feelings of Worthlessness Date Initiated: 05/21/17 Time Initiated: 04:00 Assessment reference: NA Status: Active Priority: 2 Ineffective Coping Date Initiated: 05/21/17 Time Initiated: 04:00 Assessment reference: NA Status: Active Priority: 3 Medication Nonadherence Date Initiated: 05/21/17 Time Initiated: 04:00 Assessment reference: NA Status: Active Priority: 4 Self Care Deficit Date Initiated: 05/21/17 Time Initiated: 04:00 Assessment reference: NA Status: Active Priority: 5 Treatment assets and liabiliti Patient Assests: cooperative, cognitively intact, good interpersonal skills Patient Liabilities: financial problems, relationship conflicts - Milieu Protocol Maintain good personal hygiene: daily Encourage regular showers, every shift Remind patient to perform daily oral care, every shift Assist patient to perform ADL's Maintain personal safety: every shift Educate patient to report safety concerns to staff, every shift Monitor environment for contraband/sharps Medication safety: Monitor for expected outcome, potential side effects: every shift, Assess barriers to learning: every shift, Assess readiness for medication education: every shift Milieu Narrative: Milieu/structure/supportive therapy Medical consult appreciated, see medical team note for more detailed info SW consultation for discharge plan and social issues Med management celexa 20mg po daily for depression sonata as needed for insomnia, pt willing to take it xanax 0.25mg po tid for anxiety as per PT, pt could walk using her crutches twice a day under supervision of staff. Family meeting appreciated last week Follow up on labs Will monitor closely Pt was educated about risk/benefits and alternatives of medications, coping strategies (safety plan, suicide prevention), relapse prevention, importance of follow up with psychiatrist and therapist, stay away from drugs/alcohol/smoking Family Contact Family involvement: No known Family/SO - Goals for Treatment Patient goals for treatment: Improve mood, self esteem, and motivation. Discharge/Continuing Care - Education Needs Education Needs: Family Medication, Family Diagnosis/Disease Process, Family Coping Skills, Family Anger Management skills, Family Placement options, Family Community resources, Family Activities of Daily Living, Family Health Practices/ Safety, Family Aftercare Safety Plan, Patient Medication, Patient Diagnosis/ Disease Process, Patient Coping Skills, Patient Anger Management skills, Patient Placement options, Patient Community resources, Patient Activities of Daily Living, Patient Pain, Patient Nutrition, Patient Uses of Medical Equipment , Patient Health Practices/Safety, Patient Personal Hygiene/Grooming, Patient Aftercare Safety Plan, Patient Other (VOCATIONAL ASSISTANCE) - Discharge Discharge Criteria: Tolerates medication w/o severe side effects, Free of Suicidal thoughts, Ability to care for self - Treatment Team Participation Patient/Family/SO Statement: Milieu/structure/supportive therapy Medical consult appreciated, see medical team note for more detailed info SW consultation for discharge plan and social issues Med management celexa 20mg po daily for depression sonata as needed for insomnia, pt willing to take it xanax 0.25mg po tid for anxiety as per PT, pt could walk using her crutches twice a day under supervision of staff. Family meeting appreciated last week Follow up on labs Will monitor closely Pt was educated about risk/benefits and alternatives of medications, coping strategies (safety plan, suicide prevention), relapse prevention, importance of follow up with psychiatrist and therapist, stay away from drugs/alcohol/smoking Treatment Plan Review Patient participation: Yes - Problem Hopelessness/Helplessness Date Initiated: 06/05/17 Time Initiated: 11:17 Progress toward outcomes: improved Feelings of Worthlessness Date Initiated: 06/05/17 Time Initiated: 11:17 Progress toward outcomes: resolved Ineffective Coping Date Initiated: 06/05/17 Time Initiated: 11:17 Progress toward outcomes: improved Medication Nonadherence Date Initiated: 06/05/17 Time Initiated: 11:18 Progress toward outcomes: improved Self Care Deficit Date Initiated: 06/05/17 Time Initiated: 11:18 Progress toward outcomes: resolved - Discharge / Continuing Care Discharge to:: Home <Sofia Hall - Last Filed: 06/05/17 14:56> - Diagnosis (1) Severe major depression Status: Acute Interventions: 06/05/17 14:56 patient improved significantly Family meeting took place, relationship with mother improved Patient was depressed because of the joblessness vocational therapy appointment was provided pt has future oriented plans, wants to go back to college. Patient denied thoughts of harming herself, denied thoughts of harming others, patient does not have any signs of depression, anxiety, or agitation pose no threat to self or others <Yareli Adames - Last Filed: 06/05/17 15:31>
--- NOTE | 2017-06-05 15:09 | PCM.PYCHDC ---
Mental Status Examination - Mental Status Examination Orientation: Person, Place, Situation, Time Memory: Intact Mood: Neutral Affect: Broad (mood congruent) Speech: Appropriate Attention: WNL Concentration: WNL Association: WNL Fund of Knowledge: WNL Formal Thought Process: No Impairment Description of patient's judgement and insight: Pt has improved insight into mental and medical illness, pt was compliant with medications and unit rules and regulations, pt was going to groups, was calm, cooperative, socially appropriate, no behavioral incidents, no agitation, no aggression. Psychotic Thoughts and Behaviors: Pt denied v/a/t hallucinations, denied paranoid ideations, pt does not appear to be psychotic, and thought process is goal directed. Suicidal Ideation: No Current Homicidal Ideation?: No Plan: pt adamantly denied thoughts of harming self or others denied intent or plan Discharge Summary - Discharge Note Reason for Hospitalization: pt was admitted to the psychiatric inpatient unit for evaluation of depressive symptoms, pt is s/p intentional overdose on meds at home. Psychiatric History (includes Medical, Family, Personal Hx): see HPI Laboratory Data: 05/26/17 17:00 05/26/17 17:00 Lab Results 05/26/17 17:00: Free T4 1.12 05/26/17 17:00: Sodium 141, Potassium 3.9, Chloride 100, Carbon Dioxide 27, Anion Gap 18, BUN 14, Creatinine 0.5 L, Est GFR ( Amer) > 60, Est GFR ( Non-Af Amer) > 60, Random Glucose 112 H, Calcium 9.5, Total Bilirubin 0.2, AST 26, ALT 24, Alkaline Phosphatase 53, Total Protein 7.6, Albumin 4.3, Globulin 3.2, Albumin/Globulin Ratio 1.3 05/26/17 17:00: WBC 5.2, RBC 4.64, Hgb 12.6, Hct 40.4, MCV 87.1, MCH 27.2, MCHC 31.2, RDW 13.5, Plt Count 252, MPV 10.5, Gran % 45.4 L, Lymph % (Auto) 45.9 H, Ford % (Auto) 7.3 H, Eos % (Auto) 1.2 L, Baso % (Auto) 0.2, Gran # 2.36, Lymph # (Auto) 2.4, Ford # (Auto) 0.4, Eos # (Auto) 0.1, Baso # (Auto) 0.01 05/21/17 08:00: RPR Nonreactive 05/21/17 08:00: TSH 3rd Generation 0.35 L 05/21/17 08:00: Fasting Glucose 83, Triglycerides 50, Cholesterol 167, LDL Cholesterol Direct 74, HDL Cholesterol 60 05/21/17 02:30: pCO2 33 L, pO2 126.0 H, HCO3 20.4 L, ABG pH 7.40, ABG Total CO2 21.4 L, ABG O2 Saturation 99.5 H, ABG Base Excess -3.6 L, ABG Potassium 3.5 L, Glucose 114 H, Lactate 1.1, FiO2 21.0, Sodium 142.0, Chloride 114.0 H, Arterial Blood Potassium 3.5 L 05/21/17 01:20: Salicylates 6, Acetaminophen 16.0 05/20/17 23:13: Urine Color Yellow, Urine Appearance Clear, Urine pH 6.5, Ur Specific [place] 1.010, Urine Protein Negative, Urine Glucose (UA) Negative, Urine Ketones Negative, Urine Blood Negative, Urine Nitrate Positive H, Urine Bilirubin Negative, Urine Urobilinogen 0.2, Ur Leukocyte Esterase Negative, Urine RBC 0 - 2, Urine WBC 1 - 3, Ur Epithelial Cells 0 - 2, Urine Bacteria Many 05/20/17 23:13: Urine Opiates Screen Negative, Urine Methadone Screen Negative, Ur Barbiturates Screen Negative, Ur Phencyclidine Scrn Negative, Ur Amphetamines Screen Negative, U Benzodiazepines Scrn Negative, U Oth Cocaine Metabols Negative, U Cannabinoids Screen Negative 05/20/17 21:30: Alcohol, Quantitative < 10 05/20/17 21:30: Salicylates < 1 L, Acetaminophen 12.0 05/20/17 21:30: Sodium 141, Potassium 4.3, Chloride 104, Carbon Dioxide 22, Anion Gap 18, BUN 15, Creatinine 0.5 L, Est GFR ( Amer) > 60, Est GFR ( Non-Af Amer) > 60, Random Glucose 96, Calcium 10.2, Total Bilirubin 0.5, AST 25 , ALT 28, Alkaline Phosphatase 91, Total Protein 8.1, Albumin 4.5, Globulin 3.6 , Albumin/Globulin Ratio 1.2 05/20/17 21:30: WBC 6.0, RBC 4.74, Hgb 12.9, Hct 40.4, MCV 85.2, MCH 27.2, MCHC 31.9, RDW 13.4, Plt Count 249, MPV 10.8, Gran % 62.6, Lymph % (Auto) 26.4, [place] % (Auto) 10.1 H, Eos % (Auto) 0.7 L, Baso % (Auto) 0.2, Gran # 3.73, Lymph # ( Auto) 1.6, Ford # (Auto) 0.6, Eos # (Auto) 0.0, Baso # (Auto) 0.01 Vital Signs Temp Pulse Resp BP Pulse Ox 06/05/17 07:44 98.1 F 91 H 20 98/56 L 06/04/17 15:00 88 104/52 L 06/04/17 06:58 98.1 F 88 16 89/44 L 06/04/17 06:56 98.1 F 88 16 89/44 L 06/03/17 15:48 92 H 107/59 L 06/03/17 07:21 98.3 F 85 20 98/59 L 06/02/17 15:55 88 107/50 L 06/02/17 07:27 98.1 F 84 20 97/62 L 06/01/17 15:00 80 98/61 L 06/01/17 07:19 98.1 F 82 19 98/57 L 05/31/17 16:00 95 H 128/76 05/31/17 07:25 97.8 F 80 20 95/52 L 05/30/17 16:00 84 94/49 L 05/30/17 07:51 98.1 F 81 20 90/55 L 05/29/17 21:41 102 H 109/56 L 05/29/17 07:32 98.1 F 83 20 96/55 L 05/28/17 16:00 95 H 108/75 05/28/17 07:24 98.1 F 81 20 99/57 L 05/27/17 16:00 83 94/55 L 05/27/17 07:26 98.1 F 84 20 102/56 L 05/26/17 16:00 87 112/68 05/26/17 07:11 98.2 F 82 20 82/50 L 02/12/18 16:00 111 H 118/62 02/12/18 07:30 98.1 F 90 20 114/66 05/24/17 22:29 95 H 113/62 05/24/17 07:27 97.8 F 83 20 99/56 L 05/23/17 11:15 98 F 96 H 20 119/72 05/23/17 06:51 97.8 F 85 20 100/51 L 05/22/17 15:00 101 H 118/75 05/22/17 07:43 98.2 F 81 20 96/51 L 05/21/17 16:00 99 H 116/62 05/21/17 03:45 97.2 F L 92 H 16 124/84 97 05/21/17 01:26 98.4 F 87 18 114/72 100 05/20/17 23:10 89 18 108/48 L 98 05/20/17 21:52 98.4 F 99 H 18 134/84 100 Consultations:: List each consultation separately and include: 1. Reason for request. 2. Findings. 3. Follow-up Consultations: medical and PT consult appreciated as PT eval pt could use her crutches under supervision twice a day. medical f/u appreciated for vomiting. Summary of Hospital Course include:: 1. Description of specific treatment plan utilized for patients during their course of treatmen. 2. Summarize the time- course for resolution of acute symptoms and/or regressed behaviors. 3. Describe issues identified and worked on during hospitalization. 4. Describe medication utilized. 5. Describe medical problems identified and treated. 6. Reassessment of suicide risk Summary of Hospital Course: Shortly patient is 21 year old female, self reported history of depression, one suicidal attempt in the past in 2014 and one previous psychiatric admission in [facility] at the same year, patient lives with her mother, has multiple medical issues including spina bifida, patient is unable to walk, ambulates either with wheelchair or crutches, currently does not work or attending college. pt was brought by ambulance and her cousin s/p intentional overdose on medications (r/o suicidal attempt), pt was not able to contract for safety, needs further evaluation and stabilization. at the time of admission pt presented to be tearful, depressed. Pt has acceptable personal hygiene, pt needs assistance with her ADLs due to her physical problems. patient was depressed due her disability, rejection from work , pt was not going to school either, pt also had poor relationship problems with her mother. family meeting took place, patient deemed to have improved relationship with her mother, please see social work note and this policy writer sales note for more detailed information. In regards of inability to find a job, manager social responsibility provided patient with information for vocational therapy. In regards of future oriented plans, patient is willing to go back to college, become a dental hygienist. 05/20/17 21:30 05/20/17 21:30 Lab Results 05/21/17 08:00: TSH 3rd Generation 0.35 L 05/21/17 08:00: Fasting Glucose 83, Triglycerides 50, Cholesterol 167, LDL Cholesterol Direct 74, HDL Cholesterol 60 05/21/17 02:30: pCO2 33 L, pO2 126.0 H, HCO3 20.4 L, ABG pH 7.40, ABG Total CO2 21.4 L, ABG O2 Saturation 99.5 H, ABG Base Excess -3.6 L, ABG Potassium 3.5 L, Glucose 114 H, Lactate 1.1, FiO2 21.0, Sodium 142.0, Chloride 114.0 H, Arterial Blood Potassium 3.5 L 05/21/17 01:20: Salicylates 6, Acetaminophen 16.0 05/20/17 23:13: Urine Color Yellow, Urine Appearance Clear, Urine pH 6.5, Ur Specific [place] 1.010, Urine Protein Negative, Urine Glucose (UA) Negative, Urine Ketones Negative, Urine Blood Negative, Urine Nitrate Positive H, Urine Bilirubin Negative, Urine Urobilinogen 0.2, Ur Leukocyte Esterase Negative, Urine RBC 0 - 2, Urine WBC 1 - 3, Ur Epithelial Cells 0 - 2, Urine Bacteria Many 05/20/17 23:13: Urine Opiates Screen Negative, Urine Methadone Screen Negative, Ur Barbiturates Screen Negative, Ur Phencyclidine Scrn Negative, Ur Amphetamines Screen Negative, U Benzodiazepines Scrn Negative, U Oth Cocaine Metabols Negative, U Cannabinoids Screen Negative 05/20/17 21:30: Alcohol, Quantitative < 10 05/20/17 21:30: Salicylates < 1 L, Acetaminophen 12.0 05/20/17 21:30: Sodium 141, Potassium 4.3, Chloride 104, Carbon Dioxide 22, Anion Gap 18, BUN 15, Creatinine 0.5 L, Est GFR ( Amer) > 60, Est GFR ( Non-Af Amer) > 60, Random Glucose 96, Calcium 10.2, Total Bilirubin 0.5, AST 25 , ALT 28, Alkaline Phosphatase 91, Total Protein 8.1, Albumin 4.5, Globulin 3.6 , Albumin/Globulin Ratio 1.2 05/20/17 21:30: WBC 6.0, RBC 4.74, Hgb 12.9, Hct 40.4, MCV 85.2, MCH 27.2, MCHC 31.9, RDW 13.4, Plt Count 249, MPV 10.8, Gran % 62.6, Lymph % (Auto) 26.4, Ford % (Auto) 10.1 H, Eos % (Auto) 0.7 L, Baso % (Auto) 0.2, Gran # 3.73, Lymph # ( Auto) 1.6, Ford # (Auto) 0.6, Eos # (Auto) 0.0, Baso # (Auto) 0.01 Vital Signs Temp Pulse Resp BP Pulse Ox 05/21/17 03:45 97.2 F L 92 H 16 124/84 97 05/21/17 01:26 98.4 F 87 18 114/72 100 05/20/17 23:10 89 18 108/48 L 98 05/20/17 21:52 98.4 F 99 H 18 134/84 100 initially, patient was selective in regards of the medications, refused to take medication for sleep, patient did not tolerate Wellbutrin well because of the headache, Celexa was started, initially patient had some vomiting and nausea, but during the course of this hospitalization patient tolerated this medication well, slowly was titrated to 20 mg daily for depression and anxiety. Patient also was taking Xanax 0.25 mg 3 times a day as needed for anxiety Sonata 5 mg at the nighttime as needed for insomnia Patient tolerated medications well, no side effects observed or reported, aims 0 , no EPS. patient had physical therapy, was ambulating with wheelchair as well as crutches. pt's mother and pt were in agreement that pt is doing better and ready for d/c mother willing to accept pt back home. Over the course of this hospitalization pt was attending groups, pt also had medication management, had therapeutic milieu. Overall pt improved significantly, pt's affect became brighter, pt was less depressed, has realistic future oriented plans, pt also does not appear to be psychotic, or anxious, pt was socially appropriate, no behavioral issues, pts insight improved as well and soon pt deemed to be ready for discharge. At the time of the discharge pt denied been depressed, denied thoughts of harming self or others, denied psychotic symptoms, and pt does not appeared to be psychotic, denied been anxious, pt is not in imminent danger to self or others, will be following up at [facility] information about follow up appointment, time and address provided to the pt, it is patient responsibility to follow up with outpatient clinic, PMD as well as specialists ( see SW note for more detailed information). In case pt will need to obtain results of studies pending at discharge pt was provided with contact information of Psychiatric Inpatient unit [phone] as well as Medical Record Department [phone]. pt was provided with prescriptions for all of medications (please see medication reconciliation form) Pt was educated about safety plan in case of worsening of symptoms or in case of suicidal or homicidal ideation call 911 or go to the nearest ER, also was educated to take meds as prescribed and stay away from drugs, pt verbalized understanding. - Diagnosis (1) Severe major depression Current Visit: Yes Status: Acute Priority: High - Final Diagnosis (DSM 5) Condition upon Discharge: IMPROVED Disposition: HOME/ ROUTINE Follow-up Treatment Plan: At the time of the discharge pt denied been depressed, denied thoughts of harming self or others, denied psychotic symptoms, and pt does not appeared to be psychotic, denied been anxious, pt is not in imminent danger to self or others, will be following up at [facility]., information about follow up appointment, time and address provided to the pt, it is patient responsibility to follow up with outpatient clinic, PMD as well as specialists ( see SW note for more detailed information). In case pt will need to obtain results of studies pending at discharge pt was provided with contact information of Psychiatric Inpatient unit [phone] as well as Medical Record Department [phone]. pt was provided with prescriptions for all of medications (please see medication reconciliation form) Pt was educated about safety plan in case of worsening of symptoms or in case of suicidal or homicidal ideation call 911 or go to the nearest ER, also was educated to take meds as prescribed and stay away from drugs, pt verbalized understanding. Prescriptions/Medication Reconciliation: ALPRAZolam [Xanax] 0.25 mg PO TID PRN #45 tab PRN Reason: Anxiety Citalopram [celEXA] 20 mg PO DAILY #14 tab Zaleplon [Sonata] 5 mg PO HS PRN #14 cap PRN Reason: Insomnia - Smoking Cessation Smoking Cessation Medication prescribed: No Reason for not providing: denied smoking - Antipsychotic Medications Pt discharged on 2 or more routine antipsychotic medications: No
== END 2017-06-05 16:15 | disposition home or self-care (01) | DRG 885 ==
LOC: ED 21:19 → ERH 05-21 03:11 → PSYC 05-21 03:50
PROVIDERS: ADMIT Psychiatry & Neurology Psychiatry; ATTEND Psychiatry & Neurology Psychiatry
DX: F33.2 Major depressive disorder, recurrent severe without psychotic features (principal); F12.90 Cannabis use, unspecified, uncomplicated; N39.0 Urinary tract infection, site not specified; F41.9 Anxiety disorder, unspecified; G89.29 Other chronic pain; J00 Acute nasopharyngitis [common cold]; Q05.9 Spina bifida, unspecified; Z87.440 Personal history of urinary (tract) infections; R40.2412 Glasgow coma scale score 13-15, at arrival to emergency department; G47.00 Insomnia, unspecified; B96.20 Unspecified Escherichia coli [E. coli] as the cause of diseases classified elsewhere; Z91.5 Personal history of self-harm

== ENCOUNTER 2017-09-28 15:19 | Emergency (ER) | payer BC, MEDICAID, OTHER ==
[2017-09-28 15:22] VITALS: BMI 21.6
[2017-09-28 15:39] VITALS: RESP 18
--- NOTE | 2017-09-28 15:50 | ED PDOC ---
Arrival/HPI - General Chief Complaint: Cough, Cold, Congestion Time Seen by Provider: 09/28/17 15:33 Historian: Patient - History of Present Illness Narrative History of Present Illness (Text): 09/28/17 15:47 22yo female who present with complaint of greenish to clear productive cough, nasal congestion/rhinorrhea and malaise x 2days. She did not take any medication. She is eating and drinking well. denies fever, chills, SOB, chest pain, diaphoresis, sick contact, travel, any other complaint. Past Medical History - Provider Review Nursing Documentation Reviewed: Yes - Infectious Disease Hx of Infectious Diseases: None - Cardiac Hx Cardiac Disorders: No - Pulmonary Hx Respiratory Disorders: No - Neurological Hx Neurological Disorder: No - HEENT Hx HEENT Disorder: No - Renal Hx Renal Disorder: No - Endocrine/Metabolic Hx Endocrine Disorders: No - Hematological/Oncological Hx Blood Disorders: No - Integumentary Hx Dermatological Disorder: No - Gastrointestinal Hx Gastrointestinal Disorders: No - Genitourinary/Gynecological Hx Genitourinary Disorders: Yes Hx Urinary Tract Infection: Yes - Psychiatric Hx Depression: Yes Hx Substance Use: No - Surgical History Other/Comment: 3 sx to both legs, right nephrostomy stoma, right partial nephrectomy - Anesthesia Hx Anesthesia: No - Suicidal Assessment Feels Threatened In Home Enviroment: No Family/Social History - Physician Review Nursing Documentation Reviewed: Yes Family/Social History: Unknown Family HX Smoking Status: Never Smoked Hx Alcohol Use: No Hx Substance Use: No Allergies/Home Meds Allergies/Adverse Reactions: Allergies No Known Allergies Allergy (Verified 05/21/17 05:02) Review of Systems - Physician Review All systems were reviewed & negative as marked: Yes - Review of Systems Constitutional: Fatigue. absent: Fevers Eyes: Normal ENT: Rhinorrhea Respiratory: Cough, Sputum. absent: SOB, Wheezing Cardiovascular: Normal Gastrointestinal: Normal Genitourinary Female: Normal Musculoskeletal: Normal Skin: Normal Neurological: Normal Endocrine: Normal Hemo/Lymphatic: Normal Psychiatric: Normal Physical Exam Vital Signs Reviewed: Yes Vital Signs Temp Pulse Resp BP Pulse Ox 09/28/17 17:25 98.3 F 82 18 116/72 99 09/28/17 15:24 98.4 F 116 H 18 119/66 98 Temperature: Afebrile Blood Pressure: Normal Pulse: Regular Respiratory Rate: Normal Appearance: Positive for: Well-Appearing, Non-Toxic, Comfortable Pain Distress: None Mental Status: Positive for: Alert and Oriented X 3 - Systems Exam Head: Present: Atraumatic, Normocephalic Pupils: Present: PERRL Extroacular Muscles: Present: EOMI Conjunctiva: Present: Normal Ears: Present: Normal, NORMAL TM Mouth: Present: Moist Mucous Membranes Pharnyx: Present: Normal Nose (Internal): Present: Normal Inspection Neck: Present: Normal Range of Motion Respiratory/Chest: Present: Clear to Auscultation, Good Air Exchange. No: Respiratory Distress, Accessory Muscle Use, Wheezes, Decreased Breath Sounds, Rales, Retracting, Rhonchi, Tachypneic Cardiovascular: Present: Regular Rate and Rhythm, Normal S1, S2. No: Murmurs Abdomen: No: Tenderness, Distention, Peritoneal Signs Back: Present: Normal Inspection Upper Extremity: Present: Normal Inspection. No: Cyanosis, Edema Lower Extremity: Present: Normal Inspection. No: Edema Neurological: Present: GCS=15, CN II-XII Intact, Speech Normal Skin: Present: Warm, Dry, Normal Color. No: Rashes Psychiatric: Present: Alert, Oriented x 3, Normal Insight, Normal Concentration Medical Decision Making ED Course and Treatment: 09/28/17 20:12 PT presented for stated history. she vomited while in ED and lab was ordered. She was hydrated. She denied abdominal pain or urinary symptoms. She however complained of weakness and dizziness. She was leukopenic, which is likely cause of pt's viral URI symptoms. She was treated with Keflex for UTI CXR NAD She was treated with antitussive. Referred to her PMD. Advised to drink plenty of fluid. TRT ED for any new or worsening symptoms. - Lab Interpretations Lab Results: 09/28/17 16:05 09/28/17 16:05 Lab Results 09/28/17 16:15: Urine Color Yellow, Urine Appearance Slight-cloudy, Urine pH 7.0 , Ur Specific [place] 1.010, Urine Protein Negative, Urine Glucose (UA) Negative , Urine Ketones Negative, Urine Blood Small H, Urine Nitrate Positive H, Urine Bilirubin Negative, Urine Urobilinogen 0.2, Ur Leukocyte Esterase Moderate H, Urine RBC 1 - 3, Urine WBC 10 - 15, Ur Epithelial Cells 3 - 4, Urine Bacteria Small 09/28/17 16:05: Sodium 146, Potassium 3.9, Chloride 106, Carbon Dioxide 29, Anion Gap 16, BUN 12, Creatinine 0.5 L, Est GFR ( Amer) > 60, Est GFR ( Non-Af Amer) > 60, Random Glucose 108, Calcium 9.2, Magnesium 2.0, Total Bilirubin 0.3, AST 27, ALT 20, Alkaline Phosphatase 59, Total Protein 7.8, Albumin 4.3, Globulin 3.6, Albumin/Globulin Ratio 1.2, Lipase 93 09/28/17 16:05: PT 13.3 H, INR 1.16 H, APTT 30.6 09/28/17 16:05: WBC 3.7 L D, RBC 4.81, Hgb 13.1, Hct 40.4, MCV 84.0 D, MCH 27.2 , MCHC 32.4, RDW 13.2, Plt Count 254, MPV 10.6, Gran % 31.6 L, Lymph % (Auto) 52.3 H, [place] % (Auto) 10.2 H, Eos % (Auto) 5.4 H, Baso % (Auto) 0.5, Gran # 1.17 L, Lymph # (Auto) 1.9, Bar[place] # (Auto) 0.4, Eos # (Auto) 0.2, Baso # (Auto) 0.02 - RAD Interpretation Radiology Orders: 09/28/17 15:39 CHEST TWO VIEWS (PA/LAT) [RAD] Stat - Medication Orders Current Medication Orders: Discontinued Medications Benzonatate (Tessalon Perles) 100 mg PO ONCE STA Stop: 09/28/17 17:01 Cephalexin Monohydrate (Keflex) 500 mg PO STAT STA PRN Reason: Protocol Stop: 09/28/17 16:28 Sodium Chloride (Sodium Chloride 0.9%) 1,000 mls @ 1,000 mls/hr IV .Q1H STA Stop: 09/28/17 17:02 Last Admin: 09/28/17 16:13 Dose: 1,000 mls/hr eMAR Start Stop Document 09/28/17 16:13 HI (Rec: 09/28/17 16:13 IA [id number]) Intravenous Solution Start Date 09/28/17 Start Time 16:13 Ondansetron HCl (Zofran Inj) 4 mg IVP STAT STA Stop: 09/28/17 16:04 Last Admin: 09/28/17 16:13 Dose: 4 mg IVP Administration Document 09/28/17 16:13 IA (Rec: 09/28/17 16:13 IA [id number]) Charges for Administration # of IVP Administrations 1 Disposition/Present on Arrival - Present on Arrival Any Indicators Present on Arrival: No History of DVT/PE: No History of Uncontrolled Diabetes: No Urinary Catheter: No History of Decub. Ulcer: No History Surgical Site Infection Following: None - Disposition Have Diagnosis and Disposition been Completed?: Yes Diagnosis: UTI (urinary tract infection), Cough, Malaise Disposition: HOME/ ROUTINE Disposition Time: 17:05 Patient Plan: Discharge Condition: STABLE Discharge Instructions (ExitCare): Fatigue (DC), Urinary Tract Infection, Adult (DC), Viral Upper Respiratory Infection, Adult (DC) Additional Instructions: Follow up with your Doctor Drink plenty of fluid and rest Return to ED for any new or worsening symptoms Prescriptions: Benzonatate [Tessalon Perles] 100 mg PO TID #20 sgl Cephalexin [Keflex] 500 mg PO TID #21 capsule Ibuprofen [Motrin Tab] 600 mg PO Q6 #15 tab Referrals: Haley Pablo MD [Primary Care Provider] - Follow up with primary Forms: [employer] ([place]ian)
[2017-09-28] MEDS ORDERED: Sodium Chloride 0.9% 1,000 ML IV STA (16:03)
[2017-09-28 16:17] LABS: BASO # 0.02 K/mm3 (0.0-2.0); BASO % 0.5 % (0.0-3.0); EOS # 0.2 (0.0-0.7); EOS % 5.4 % (1.5-5.0); GRAN # 1.17 (1.4-6.5); GRAN % 31.6 % (50.0-68.0); HEMOGLOBIN 13.1 g/dL (12.0-16.0); LYMPH # 1.9 (1.2-3.4); LYMPH % 52.3 % (22.0-35.0); MEAN CORPUSCULAR HEMOGLOBIN 27.2 pg (25.0-35.0); MEAN CORPUSCULAR HGB CONC 32.4 g/dl (31.0-37.0); MEAN PLATELET VOLUME 10.6 fl (7.0-11.0); MONO # 0.4 (0.1-0.6); MONO % 10.2 % (1.0-6.0); RBC 4.81 10^6/uL (3.5-6.1); RED CELL DISTRIBUTION WIDTH 13.2 % (11.5-14.5); WHITE BLOOD COUNT 3.7 10^3/ul (4.5-11.0)
[2017-09-28 16:25] LABS: INR 1.16 (0.93-1.08); PARTIAL THROMBOPLASTIN TIME 30.6 Seconds (25.1-36.5); PROTHROMBIN TIME 13.3 SECONDS (9.4-12.5)
[2017-09-28 16:26] LABS: URINE APPEARANCE SLIGHT-CLOUDY (CLEAR); URINE BILIRUBIN NEGATIVE (NEGATIVE); URINE BLOOD SMALL (NEGATIVE); URINE COLOR YELLOW (YELLOW); URINE GLUCOSE (UA) NEGATIVE (NEGATIVE); URINE LEUKOCYTE ESTERASE MODERATE Leu/uL (NEGATIVE); URINE PROTEIN NEGATIVE mg/dL (<30 mg/dL); URINE UROBILINOGEN 0.2 E.U./dL (<1 E.U./dL)
[2017-09-28 16:27] LABS: ALB/GLOB RATIO 1.2 (1.1-1.8); ALBUMIN 4.3 g/dL (3.0-4.8); ALT/SGPT 20 U/L (7-56); AST/SGOT 27 U/L (14-36); BLOOD UREA NITROGEN 12 mg/dL (7-21); CALCIUM 9.2 mg/dL (8.4-10.5); GFR AFRICAN-AMERICAN > 60; GFR NON-AFRICAN AMERICAN > 60; LIPASE 93 U/L (23-300)
[2017-09-28 16:30] LABS: URINE BACTERIA SMALL (NEG)
--- NOTE | 2017-09-28 17:13 | RAD ---
HISTORY: cough COMPARISON: 05/21/2017 TECHNIQUE: Chest PA and lateral FINDINGS: LUNGS: No active pulmonary disease. PLEURA: No significant pleural effusion identified. No pneumothorax apparent. CARDIOVASCULAR: Normal. OSSEOUS STRUCTURES: No significant abnormalities. VISUALIZED UPPER ABDOMEN: Normal. OTHER FINDINGS: None. IMPRESSION: No active disease. No significant interval change compared to the prior examination(s).
[2017-09-28 17:25] VITALS: BP 116/72; PULSE 82; O2SAT 99
[2017-09-28 17:31] VITALS: TEMP 98.3
== END 2017-09-28 17:25 | disposition home or self-care (01) ==
LOC: ED 15:19
DX: N39.0 Urinary tract infection, site not specified (principal); R05 Cough; R53.81 Other malaise
CPT/HCPCS: 71046; 80053; 81001; 83690; 83735; 85025; 85610; 85730; 87086; 96374; 99283; J2405; J7030